=== PATIENT | female | born 1965 | race Caucasian/White ===

== ENCOUNTER 2018-06-09 14:05 | Inpatient (IN) | payer MEDICARE, OTHER ==
[~2018-06-09] VITALS: Ht 144.8 cm; Wt 50.0 kg
[~2018-06-09 14:05] MED LIST: ACEBUTCAFT; ACEBUTCAFT PO; ALPR.5 PO; AMIT75; AMIT75 PO; AMITRIPTYLINE 150 MG; AMYLIPPROE PO; ANAS1 PO; Adipex-P37.5 M1 PO; BISA5EC PO; BUTASPCAF PO; CIPR500 PO; CITA20 PO; CODBUTACEC PO; DULO30 PO; ESOM20; ESOM20 PO; EZET10; EZET10-10; EZET10-20 PO; FAMO40 PO; FLUT110OIA INH; HYDACE5 PO; HYDMOR2 PO; KETO10 PO; LANS30EC PO; LEVSOD50 PO; LORA.5 PO; LOVA20 PO; MAGCIT300 PO; METO10 PO; METO25 PO; NAPR500 PO; NITR100CA PO; OMEPRAZOLE MAGN20 MG PO; ONDA4 PO; ONDA4ODT MM; ONDA8 PO; ONDA8ODT MM; OXYACE5T PO; OXYACE7.5T PO; PENVK500 PO; POTCHL20ER PO; PROC10 PO; PROM25 PO; PROM25S PR; Percocet 7.5-31 EACH PO; RANI150 PO; RXHYDACE PO; RXHYDMOR2 PO; RXOXYACE PO; RXPROM25 PO; RXTRAM50 PO; SENN187 PO; SODPHOSO PR; SULTRISS PO; TOPI50 PO; TRAM50; TRAM50 PO; TRAZ100 PO; [UNRECOGNIZED DRUG - OTHER] PO; [UNRECOGNIZED DRUG - REMARK]; knee brace
[2018-06-09 15:19] LABS: BASOPHILS ABSOLUTE AUTO 0.02 K/mm3 (0.00-0.23); BASOPHILS PERCENT AUTO 0 % (0-2); EOSINOPHILS ABSOLUTE AUTO 0.01 K/mm3 (0.00-0.68); EOSINOPHILS PERCENT AUTO 0 % (0-6); Hematocrit 37.1 % (33.0-51.0); IMMATURE GRAN ABSOLUTE AUTO 0.03 K/mm3 (0.00-0.10); IMMATURE GRAN PERCENT AUTO 1 % (0-1); LYMPHOCYTES ABSOLUTE AUTO 1.14 K/mm3 (0.84-5.20); LYMPHOCYTES PERCENT AUTO 23 % (21-46); MONOCYTES ABSOLUTE AUTO 0.42 K/mm3 (0.16-1.47); MONOCYTES PERCENT AUTO 9 % (4-13); Mean Corpuscular Volume 114 fL (80-100); Mean Platelet Volume 8.8 fL (9.1-12.4); NEUTROPHILS ABSOLUTE AUTO 3.27 K/mm3 (1.96-9.15); NEUTROPHILS PERCENT AUTO 67 % (41-73); Platelet Count 190 K/mm3 (150-400); RDW Coefficient Variation 13.2 % (11.7-14.2); RDW Standard Deviation 56.3 fL (35.1-46.3); Red Blood Cell Count 3.25 M/mm3 (3.80-5.20); White Blood Cell Count 4.89 K/mm3 (4.00-11.30)
[2018-06-09 15:54] LABS: Alanine Aminotransfer (ALT/SGP 35 U/L (12-78); Albumin, Blood 3.7 g/dL (3.4-5.0); Albumin/Globulin Ratio 1.1 (0.8-1.8); Alk Phos 35 U/L (50-136); Anion Gap 14 mmol/L (6-16); Aspartate Aminotrans (AST/SGOT 31 U/L (12-37); Bilirubin, Total 0.4 mg/dL (0.1-1.0); Blood Urea Nitrogen 11 mg/dL (8-24); Bun/Creatinine Ratio 19.4 (12.0-20.0); CO2, Blood 19 mmol/L (21-32); Calcium, Blood 8.1 mg/dL (8.5-10.1); Chloride, Blood 103 mmol/L (98-108); Creatinine, Blood 0.57 mg/dL (0.40-1.00); Globulin, Blood 3.3 g/dL (2.2-4.0); Glomerular Filtration Rate >60 (60-); Glucose, Blood 67 mg/dL (70-99); Potassium, Blood 2.7 mmol/L (3.5-5.5); Sodium, Blood 136 mmol/L (136-145)
[2018-06-09] MEDS ORDERED: Zantac150 MG PO (20:01)
[2018-06-09] MEDS ORDERED: TRAZ150T57 PO (20:01)
[2018-06-09] MEDS ORDERED: EXEM25 PO (20:05)
[2018-06-09] MEDS ORDERED: Lovastatin20 MG PO (20:07)
[2018-06-10 04:32] LABS: Hematocrit 31.1 % (33.0-51.0); Mean Corpuscular HGB Conc 35.4 g/dL (31.5-36.5); Mean Platelet Volume 9.3 fL (9.1-12.4); Platelet Count 148 K/mm3 (150-400); RDW Standard Deviation 52.4 fL (35.1-46.3); Red Blood Cell Count 2.82 M/mm3 (3.80-5.20); White Blood Cell Count 4.05 K/mm3 (4.00-11.30)
[2018-06-10 04:34] LABS: Mean Corpuscular Volume 110 fL (80-100)
[2018-06-10 04:50] LABS: Alanine Aminotransfer (ALT/SGP 32 U/L (12-78); Albumin/Globulin Ratio 1.1 (0.8-1.8); Alk Phos 29 U/L (50-136); Anion Gap 10 mmol/L (6-16); Aspartate Aminotrans (AST/SGOT 30 U/L (12-37); Bilirubin, Total 0.3 mg/dL (0.1-1.0); Blood Urea Nitrogen 5 mg/dL (8-24); Bun/Creatinine Ratio 11.2 (12.0-20.0); CO2, Blood 22 mmol/L (21-32); Calcium, Blood 7.6 mg/dL (8.5-10.1); Chloride, Blood 109 mmol/L (98-108); Creatinine, Blood 0.45 mg/dL (0.40-1.00); Globulin, Blood 2.7 g/dL (2.2-4.0); Glomerular Filtration Rate >60 (60-); Glucose, Blood 192 mg/dL (70-99); Potassium, Blood 2.8 mmol/L (3.5-5.5); Sodium, Blood 141 mmol/L (136-145); Total Protein, Blood 5.7 g/dL (6.4-8.2)
--- NOTE | 2018-06-10 06:20 | NUR ---
SHIFT SUMMARY PT NEW ED ADMIT THIS EVENING. WEAK BUT ABLE TO AMBULATE TO RESTROOM WITH ONLY A SBA. PT REPORTS MID UPPER EPIGASTRIC PAIN THAT RADIATES DOWNWARDS AT TIMES TO HER UMBILICUS. SHE REPORTS THIS PAIN HAS BEEN GOING ON FOR SOME TIME BUT HER PRIMARY CARE AND HER ONCOLOGIST HAVE BEEN UNABLE TO FIGURE OUT WHY. THERE IS NAUSEA INVOLVED WELL AND PT REPORTS SHE IS RARELY ABLE TO HOLD DOWN FOOD AND THAT WITHIN THE LAST 2 MONTHS SHE WAS LOST 20 LBS. SHE ALSO HAS LOST, PER PT, APPROXIMATELY 100 LBS IN THE LAST YEAR. PT'S GLUCOSE CRITICALLY LOW AT 27 DOWN IN EMERGENCY DEPARTMENT, D50 WAS GIVEN. PT HAS IMPROVED WITH LAST TWO CHECKS BEING 140 AND 192. PT ALSO HAS D5 W/ 1/2 NORMAL SALINE RUNNING AT 75 ML/HR. MEDICATED X 1 W/ IV REGLAN AND PT'S NORMAL BEDTIME DOSE OF 7.5 MG PERCOCET. PT APPEARED COMFORTABLE FOLLOWING AND SLEPT THROUGH MUCH OF THE REMAINDER OF THE NIGHT. PT HAD MASTECTOMY YEARS PRIOR AND HAS RESIDUAL NERVE DAMAGE AND PAIN IN LEFT BREAST/ARM WHICH IS NORMALLY WHAT SHE REPORTS SHE TAKES THE PERCOCET FOR. PT RESTING IN BED AT THIS TIME. NO EPISODES OF EMESIS. ALTHOUGH PT ONLY ATTEMPTED TO EAT ONE JELLO THIS EVENING BUT TOLERATED WELL. BLOOD PRESSURE INTERMITTENTLY HYPOTENSIVE. PT ASYMPTOMATIC. OTHERWISE VSS. SISTER AT BEDSIDE THROUGHOUT THE NIGHT.
--- NOTE | 2018-06-10 17:30 | NUR ---
SHIFT SUMMARY PATIENT VERY ANXIOUS TODAY. SHE HAS EXPRESSED CONCERN THAT SHE FEELS HER HEALTHCARE TEAM OUTPATIENT THINKS SHE IS FAKING THE PAIN AND NAUSEA. SHE HAS NOT HELD DOWN MUCH OF HER CLEAR LIQUID DIET, AND IS TENDER TO PALPATION ALONG THE EPIGASTRIC REGION OF HER ABDOMEN. PATIENT IS SBA-INDEPENDENT IN THE ROOM TO THE BATHROOM. SHE FEELS THAT SHE IS WEAK BUT WILL CALL APPROPRIATELY. PATIENT IS VERY TEARFUL TODAY, BUT I HAVE TALKED WITH HER MANY TIMES ABOUT WHAT IS GOING ON AND THE ACUTE SIGNS AND STEPS TO FOLLOW FROM HERE. SHE IS Q4 BLOOD SUGARS AT THIS TIME WITH A WIDE RANGE OF BLOOD SUGAR READINGS.
[2018-06-10 22:42] LABS: Bilirubin, Urine Neg (Neg); Blood, Urine Neg (Neg); Glucose Qualitative, Urine Neg (Neg); Ketones, Urine 1+ (Neg); Leukocyte Esterase, Urine Neg (Neg); Nitrite, Urine Neg (Neg); Protein, Urine Neg (Neg); Urobilinogen, Urine NORM (Normal); pH, Urine 6.5 (5.0-8.0)
[2018-06-10 22:43] LABS: Appearance, Urine Clear (Clear); Color, Urine Yellow (P-Yellow)
[2018-06-11 04:48] LABS: BASOPHILS ABSOLUTE AUTO 0.03 K/mm3 (0.00-0.23); BASOPHILS PERCENT AUTO 1 % (0-2); EOSINOPHILS ABSOLUTE AUTO 0.02 K/mm3 (0.00-0.68); EOSINOPHILS PERCENT AUTO 1 % (0-6); Hematocrit 33.4 % (33.0-51.0); IMMATURE GRAN ABSOLUTE AUTO 0.01 K/mm3 (0.00-0.10); IMMATURE GRAN PERCENT AUTO 0 % (0-1); LYMPHOCYTES ABSOLUTE AUTO 0.95 K/mm3 (0.84-5.20); LYMPHOCYTES PERCENT AUTO 32 % (21-46); MONOCYTES ABSOLUTE AUTO 0.38 K/mm3 (0.16-1.47); MONOCYTES PERCENT AUTO 13 % (4-13); Mean Corpuscular HGB 39.5 pg (26.0-34.0); Mean Corpuscular HGB Conc 35.9 g/dL (31.5-36.5); Mean Corpuscular Volume 110 fL (80-100); NEUTROPHILS ABSOLUTE AUTO 1.55 K/mm3 (1.96-9.15); NEUTROPHILS PERCENT AUTO 53 % (41-73); Platelet Count 141 K/mm3 (150-400); RDW Standard Deviation 52.1 fL (35.1-46.3); Red Blood Cell Count 3.04 M/mm3 (3.80-5.20); White Blood Cell Count 2.94 K/mm3 (4.00-11.30)
[2018-06-11 05:28] LABS: Albumin, Blood 2.9 g/dL (3.4-5.0); Anion Gap 6 mmol/L (6-16); Blood Urea Nitrogen 1 mg/dL (8-24); Bun/Creatinine Ratio 2.5 (12.0-20.0); CO2, Blood 27 mmol/L (21-32); Calcium, Blood 8.2 mg/dL (8.5-10.1); Chloride, Blood 109 mmol/L (98-108); Creatinine, Blood 0.41 mg/dL (0.40-1.00); Glomerular Filtration Rate >60 (60-); Glucose, Blood 129 mg/dL (70-99); Magnesium, Blood 1.9 mg/dL (1.6-2.4); Potassium, Blood 3.4 mmol/L (3.5-5.5); Sodium, Blood 142 mmol/L (136-145)
--- NOTE | 2018-06-11 06:08 | NUR ---
SHIFT SUMMARY NO ACUTE CHANGES THIS EVENING. MINIMAL NAUSEA, HOWEVER PT HAD VERY LITTLE ORAL INTAKE. ONLY EATING A JELLO CUP. PT DID CONTINUE TO REPORT EPIGASTRIC PAIN MAINLY IN MID UPPER REGION BUT RADIATING THROUGHOUT. MEDICATED W/ SCHEDULED PERCOCET. PT APPEARED TO SLEEP WELL THROUGH MUCH OF THE NIGHT. EMOTIONAL AT START OF SHIFT, CONCERNED WITH LACK OF ANSWERS FOR SYMPTOMS AND BEING SENT HOME WITHOUT BEING CAPABLE OF HAVING GOOD ORAL INTAKE. BLOOD PRESSURE ON THE LOW SIDE AT TIMES BUT ONLY WHEN PT WAS DEEPLY SLEEPING. SISTER AT BEDSIDE THROUGHOUT THE NIGHT. SISTER REPORTED THIS EVENING THAT PT IS HIGH FUNCTIONING DEVELOPMENTALLY DELAYED, CAUSING EXTRA CONCERN WITH PT'S ABILITY TO COPE WITH AND ADDRESS CONTINUED SYMPTOMS AT HOME. OTHERWISE, NO REAL ACUTE CHANGES. WILL CONTINUE TO MONITOR AND REPORT TO DAY RN.
[2018-06-11 06:54] LABS: U Amphetamine Screen Not Detected; U Barbituate Screen Not Detected; U Benzodiazapine Screen Not Detected; U Buprenorphine Screen Not Detected; U Cannabinoids Screen Not Detected; U Cocaine Screen Not Detected; U Methadone Screen Not Detected; U Methamphetamine Screen Not Detected; U Opiates Screen Not Detected; U Oxycodone Screen DETECTED; U Phencyclidine Screen Not Detected; U Propoxyphene Screen Not Detected
--- NOTE | 2018-06-11 17:24 | NUR ---
SHIFT SUMMARY NO ACUTE CONCERNS FROM THE PATIENT AT THIS TIME. SHE IS LESS TEARFUL TODAY AND NO CONCERNS FROM THE PATIENT OR FAMILY. HER POTASSIUM IS BACK IN A SAFE RANGE AND THE PATIENT IS WORRIED THAT SHE WILL NOT GET ANSWERS TO HER ABDOMINAL PAIN PROBLEMS.
--- NOTE | 2018-06-12 05:25 | NUR ---
SHIFT SUMMARY PT SLEPT WELL AGAIN THIS EVENING. CONTINUES TO REPORT MID UPPER EPIGASTRIC PAIN THAT RADIATES TO LOWER ABD. PT HAS DIFFICULT TIME EATING ANYTHING WITHOUT FEELING OVERLY FULL AND NAUSEATED, HOWEVER PT WAS ABLE TO EAT SEVERAL JELLOS AND A POPSICLE AND TOLERATED WELL THIS EVENING. MEDICATED W/ SCHEDULED PERCOCET AT BEDTIME. PT DID NOT REQUIRE ANY ANTIEMETICS TONIGHT. FAMILY AND PT CONTINUE TO BE CONCERNED ABOUT BEING DISCHARGED WITHOUT AN ANSWER TO WHY PT HAS BEEN HAVING EPIGASTRIC PAIN WITH INABILITY TO EAT WELL. OTHERWISE THOUGH, UNEVENTFUL NIGHT. BLOOD PRESSURE LOW AT TIMES WITH SYSTOLIC IN THE 90'S BUT IMPROVES ONCE AWAKE. VITAL SIGNS STABLE. PT SLEEPING AT THIS TIME. WILL CONTINUE TO MONITOR AND REPORT TO DAY RN.
[2018-06-12 05:33] LABS: BASOPHILS ABSOLUTE AUTO 0.02 K/mm3 (0.00-0.23); BASOPHILS PERCENT AUTO 1 % (0-2); EOSINOPHILS ABSOLUTE AUTO 0.04 K/mm3 (0.00-0.68); EOSINOPHILS PERCENT AUTO 1 % (0-6); Hematocrit 34.7 % (33.0-51.0); Hemoglobin 12.2 g/dL (11.5-16.0); IMMATURE GRAN ABSOLUTE AUTO 0.01 K/mm3 (0.00-0.10); IMMATURE GRAN PERCENT AUTO 0 % (0-1); LYMPHOCYTES ABSOLUTE AUTO 0.96 K/mm3 (0.84-5.20); LYMPHOCYTES PERCENT AUTO 32 % (21-46); MONOCYTES PERCENT AUTO 13 % (4-13); Mean Corpuscular HGB 39.5 pg (26.0-34.0); Mean Corpuscular HGB Conc 35.2 g/dL (31.5-36.5); Mean Corpuscular Volume 112 fL (80-100); NEUTROPHILS ABSOLUTE AUTO 1.56 K/mm3 (1.96-9.15); NEUTROPHILS PERCENT AUTO 52 % (41-73); Platelet Count 147 K/mm3 (150-400); RDW Coefficient Variation 13.2 % (11.7-14.2); RDW Standard Deviation 54.4 fL (35.1-46.3); Red Blood Cell Count 3.09 M/mm3 (3.80-5.20); White Blood Cell Count 2.99 K/mm3 (4.00-11.30)
[2018-06-12 06:17] LABS: Anion Gap 5 mmol/L (6-16); Blood Urea Nitrogen 1 mg/dL (8-24); Bun/Creatinine Ratio 2.5 (12.0-20.0); CO2, Blood 27 mmol/L (21-32); Calcium, Blood 8.3 mg/dL (8.5-10.1); Chloride, Blood 109 mmol/L (98-108); Glomerular Filtration Rate >60 (60-); Glucose, Blood 99 mg/dL (70-99); Potassium, Blood 3.5 mmol/L (3.5-5.5); Sodium, Blood 141 mmol/L (136-145)
--- NOTE | 2018-06-12 12:12 | NUR ---
NOTIFIED LOPRESSOR HELD THIS A.M. 0300 B.P. WAS 99/68 W/PULSE 72 AND 0730 B.P. WAS 95/66 W/PULSE 79. ALSO ADVISED DOES NOT TAKE TOPAMAX PER RELATIVE. OK TO [facility].
--- NOTE | 2018-06-12 17:39 | NUR ---
ALERT. ORIENTED. MEDICATED FOR PAIN W/SCHEDULED PAIN MEDS W/GOOD RESULTS. ANTINAUSEA MEDS GIVEN WITH DIET ADVANCED TO FULL LIQUID. MIDEPIGASTRIC PAIN HAS BEEN ON GOING FOR YEARS. RELATIVES SEEM TO HELP PATIENT TO REST ROOM WHEN NEEDED. IV PATENT AND RUNNING. TELE ON. WCTM
--- NOTE | 2018-06-12 20:45 | NUR ---
CBG 88, PT GIVEN POPSICLE AND PUDDING FOR HYPOGLYCEMIA PREVENTION D/T CONT'D POOR APPETITE. WILL RECHECK AT PA RX'D.
--- NOTE | 2018-06-12 22:00 | NUR ---
PT AND HER SISTER EXPRESSED CONCERN FOR POTENTIAL D/C IF PLANNED TO OCCUR SOON D/T CONT'D NAUSEA, POOR APPETITE, SWALLOW ISSUES AND EXTENSIVE WT.LOSS OVER PAST 6 MONTHS-1 YEAR. THEY FEEL SHE "CAN'T GO HOME LIKE THIS" AND THAT "IT WOULD BE UNSAFE TO HER HEALTH". THEY ARE HOPING FOR "MORE ANSWERS BEFORE BEING SENT HOME". WE DISCUSSED MD'S PROGRESS NOTES AND APPARENT PLAN. I DIDN'T SEE ANY INDICATION THAT PT WOULD GO HOME IN AM WHICH WAS THE IMPRESSION THEY'D PREVIOUSLY RECIEVED. WILL ENSURE DAY STAFF ARE AWARE.
--- NOTE | 2018-06-13 00:37 | NUR ---
CBG IMPROVED TO 119. WILL RECHECK Q4H PER RX.
--- NOTE | 2018-06-13 06:23 | NUR ---
SUMMARY: A/OX4, SPECIFIES NEEDS AND FAMILY STAYS W/PT, ASSISTING W/CARE PRN. SHE'S SBA TO BSC AND UP AD KAREN. PT CONT'S TO LACK APPETITE BUT SEEMS TO BE TOLERATING FULL LIQ'S. X1 ZOFRAN PRN RECIEVED PROPHYLACTICALLY TO EASE SCHEDULED PAIN MED EFFECTS ON STOMACH. FAMILY IS CONCERNED RE:POSSIBILITY OF D/C W/PT STILL NAUSEOUS/NOT EATING GIVEN SIGNIFICANT WT.LOSS AND LACKING DEFINITIVE DIAGNOSIS/PROGNOSIS. Q4H CHEMBG'S STABLE, LOWEST WAS 88 W/SNACK PROVIDED AND IMPROVED. SHE REMAINS ON D5 1/2NS W/40KCL AND CLEAR ENSURES WERE ENCOURAGED RX'D. SHE CONT'S TO HAVE CHRONIC L.ARM PAIN POST MASTECTOMY AND MIDABDO PAIN BUT SCHEDULED PAIN MEDS PROVIDED TOLERABLE RELIEF. NO ACUTE CHANGES, VSS/AFEBRILE. WCTM AND REPORT TO DAY RN.
--- NOTE | 2018-06-13 13:49 | NUR ---
Initial Visit: Palliative Care Consult for AD/POLST. Pt is A&Ox4 and jhonny pain at this time. Pt reports moderate anxiety due to not knowing why she is experiencing pain and nausea after eating. Pt's sister Mallory and father Brayan present during visit. Engaged in therapeutic conversation regarding AD/POLST. Mallory reports Pt has developmental delay but is appropriate to have discussions. Discussed Current POLST of file. Pt and family report wishes have changed. Pt reports that she still does not want CPR and only limited treatment. She would like to have tube feeding consideration. Pt prefers Mallory to complete new POLST and sign. Educated Pt and family on each life sustaining treatment including risk factors. Pt's level of understanding appears to be appropriate for conversation. Pt and family report no other concerns. Spoke with Dr Santacruz and she signs new POLST. She requests for palliative care to follow for her chronic pain issues. Plan: Will follow up for pain management.
--- NOTE | 2018-06-13 16:07 | NUR ---
Placed code status order for DNR per V/O from Dr Santacruz.
--- NOTE | 2018-06-13 17:35 | NUR ---
ALERT. ORIENTED. PLEASANT. AMBULATORY, STEADY GAIT IN ROOM. BRUISING UPPER EXT SCATTERED. 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 MEDICATED FOR NAUSEA W/GOOD RESULTS. PATIENT HAS NOT VOMITED. AWARE TO TAKE SMALL BITES OF HER FOOD. ABLE TO MAKE HER NEEDS KNOWN. BED IN LOW POSITION. CALL LIGHT WITHIN REACH. RELATIVES PRETTY MUCH STAY 24/7 AND ARE VERY ATTENTIVE. WCTM.
--- NOTE | 2018-06-14 03:39 | NUR ---
SHIFT SUMMARY PATIENT HAD NO ACUTE CHANGES OBSERVED THIS SHIFT. AXOX 4 AND INDEPENDENT IN THE ROOM. TAKES MEDICATION WHOLE WITH WATER. CBG Q4 WITH FIRST TWO 96 AND 94. PATIENT REPORTS L SHOULDER PAIN AND SCHEDULE PERCOCET GIVEN PER EMAR. PIV REMAINS INTACT. PLASTIC PARTS FABRICATOR REPORTS NSR 88. VSS/AFEBRILE. DENIES SOB AND N/V. FAMILY AND PRESENT WITH ONE FAMILY MEMBER STAYING OVER WITH PATIENT. CALL LIGHT IN REACH. BED IN LOWEST POSITION. WILL CONTINUE TO MONITOR UNTIL DAY SHIFT NURSE ASSUMES CARE.
--- NOTE | 2018-06-14 04:16 | NUR ---
GI CONSULT ANSWERING SERVICE REPORTS TO CALL BACK AFTER 08:00 TODAY FOR BEN SOLER REQUEST.
--- NOTE | 2018-06-14 04:29 | NUR ---
CBG Q4 THIS SHIFT: 94,96, AND 89. PATIENT HAVING JUICE AND FOOD AFTER CBG 89. CALL LIGHT IN REACH.
--- NOTE | 2018-06-14 08:11 | NUR ---
CODE STATUS: DNR VERIFIED WITH LAURA ANGELES RN. PURPLE BAND PLACED ON LEFT WRIST. PT AGREES WITH THIS.
--- NOTE | 2018-06-14 14:57 | NUR ---
Pt visit this afternoon. Pt reports her pain and nausea is managed with current regimen. Family reports GI consult will take place later this evening or tomorrow. Pt reports no concerns at this time. Palliative Care will remain available.
--- NOTE | 2018-06-14 18:08 | NUR ---
SHIFT SUMMARY: DIET ADVANCED TODAY. PT ABLE TO EAT A TUNA FISH SANDWICH FOR LUNCH AND TOLERATED WITHOUT N/V. REGLAN, PROTONIX, AND ZOFRAN GIVEN PRIOR TO EACH MEAL. PERCOCET GIVEN SCHEDULED FOR CHRONIC LEFT SHOULDER PAIN. PT HAS BEEN AMBULATING IN HALLS WITHOUT DIFFICULTY. GI CONSULT CALLED TO BOTH DR. SOLER AND DR. BALLESTEROS'S OFFICES TODAY; DR. BALLESTEROS'S OFFICE ASSURED THIS RN THAT ONE OF THE TWO PROVIDERS WOULD BE IN TO SEE THE PT TODAY. PT HOPEFUL TO GO TO [facility] IF NO ANSWERS FOUND HERE. NO OTHER CHANGES THIS SHIFT. VITAL SIGNS STABLE. WILL CONTINUE TO MONITOR AND REPORT TO ONCOMING RN.
[2018-06-15 05:02] LABS: BASOPHILS ABSOLUTE AUTO 0.03 K/mm3 (0.00-0.23); BASOPHILS PERCENT AUTO 1 % (0-2); EOSINOPHILS PERCENT AUTO 3 % (0-6); Hematocrit 33.7 % (33.0-51.0); Hemoglobin 11.5 g/dL (11.5-16.0); IMMATURE GRAN ABSOLUTE AUTO 0.03 K/mm3 (0.00-0.10); IMMATURE GRAN PERCENT AUTO 1 % (0-1); LYMPHOCYTES ABSOLUTE AUTO 1.24 K/mm3 (0.84-5.20); LYMPHOCYTES PERCENT AUTO 32 % (21-46); MONOCYTES ABSOLUTE AUTO 0.49 K/mm3 (0.16-1.47); MONOCYTES PERCENT AUTO 13 % (4-13); Mean Corpuscular HGB 38.9 pg (26.0-34.0); Mean Corpuscular HGB Conc 34.1 g/dL (31.5-36.5); Mean Corpuscular Volume 114 fL (80-100); Mean Platelet Volume 9.4 fL (9.1-12.4); NEUTROPHILS ABSOLUTE AUTO 1.96 K/mm3 (1.96-9.15); NEUTROPHILS PERCENT AUTO 51 % (41-73); Platelet Count 133 K/mm3 (150-400); RDW Coefficient Variation 12.2 % (11.7-14.2); Red Blood Cell Count 2.96 M/mm3 (3.80-5.20); White Blood Cell Count 3.85 K/mm3 (4.00-11.30)
[2018-06-15 05:24] LABS: Alanine Aminotransfer (ALT/SGP 36 U/L (12-78); Albumin, Blood 2.9 g/dL (3.4-5.0); Alk Phos 36 U/L (50-136); Anion Gap 7 mmol/L (6-16); Aspartate Aminotrans (AST/SGOT 21 U/L (12-37); Bilirubin, Total 0.3 mg/dL (0.1-1.0); Blood Urea Nitrogen 9 mg/dL (8-24); Bun/Creatinine Ratio 17.3 (12.0-20.0); CO2, Blood 31 mmol/L (21-32); Chloride, Blood 101 mmol/L (98-108); Creatinine, Blood 0.52 mg/dL (0.40-1.00); Globulin, Blood 2.9 g/dL (2.2-4.0); Glomerular Filtration Rate >60 (60-); Glucose, Blood 97 mg/dL (70-99); Potassium, Blood 3.4 mmol/L (3.5-5.5); Sodium, Blood 139 mmol/L (136-145); Total Protein, Blood 5.8 g/dL (6.4-8.2)
--- NOTE | 2018-06-15 06:03 | NUR ---
SHIFT SUMMARY PT HAD A GOOD EVENING, UP WALKING IN HALLS WITH SISTER. STATES THIS IS THE BEST SHE HAS FELT IN OVER A YEAR. SLEPT WELL T/O NIGHT. NO ACUTE EVENTS OR CHANGES NOTED, WILL CONTINUE TO MONITOR.
--- NOTE | 2018-06-15 15:17 | NUR ---
SUMMARY PT IS A/O X4, HX DEVELOPMENTALLY DELAYED, SOMEWHAT CHILDLIKE HOWEVER ANSWERS APPROP. SHE STATE CONTINUING L SHOULDER PAIN R/T HX MASTECTOMY, SCHEDULED PRERCOCET EFFECTIVE FOR PAIN RELIEF/CONTROL. SHE STATE NO NAUSEA TODAY, TOLERATING DIET. ENCOURAGE HER TO TAKE FOOD IN SM PORTIONS. DR ESCALERATRATE REQUEST GI CONSULT RECALLED R/T DELAYED GASTRIC EMPTYING, DR HARO OFFICE NOTIFIED. PT HAS BEEN UP AMBULATING IN [place] W FAMILY, STEADY GAIT. VSS.
--- NOTE | 2018-06-16 05:47 | NUR ---
SHIFT SUMMARY PT UP IN HALLS BEFORE BED WALKING WITH SISTER. SLEPT WELL DURING THE NIGHT. OFFERS NO C/O'S. B/P A LITTLE LOW THIS AM, WILL MONITOR.
[2018-06-16] MEDS ORDERED: METO5A PO ×2 (11:44→11:48)
[2018-06-16] MEDS ORDERED: LIDO700A20 TOP ×2 (11:46→11:49)
[2018-06-16] MEDS ORDERED: Micro-K10 MEQ (12:18)
--- NOTE | 2018-06-16 13:58 | NUR ---
DISCHARGE PT STATE NO NAUSEA OR ABD PAIN. TOLERATING DIET IN SM PORTIONS DIRECTED BY . SHE HAS BEEN UP AMBULATING IN LEE. STATE HOPEFUL FOR D/C HOME TODAY. SISTER WITH PT. ISTRATE IN TO SEE HER, PROVIDE D/C HOME ORDERS. SCRIPTS FAXED TO [facility]/REQUEST. D/C INSTRUCT PROVIDED W EMPHASIS ON F/U WITH PCP & GI. NEW MEDS REVIEWED. PT & FAMILY PLEASANT/APPRECIATIVE. SHE CHOOSE TO AMBULATE FROM HOSP ACCOMPANIED BY FAMILY, DECLINE W/C ESCORT.
== END 2018-06-16 13:44 | disposition home or self-care (01) | DRG 640 ==
LOC: ER 14:05 → MEDS 14:06 → ER 23:09 → MEDS 23:20 → ENPENDDIS 06-16 11:56 → MEDS 06-16 13:44
PROVIDERS: Family Medicine; Internal Medicine; Nurse Practitioner Acute Care; Physician Assistant; ADMIT Internal Medicine
DX: E87.6 Hypokalemia (principal); E43 Unspecified severe protein-calorie malnutrition; E03.9 Hypothyroidism, unspecified; K30 Functional dyspepsia; E16.2 Hypoglycemia, unspecified; E78.00 Pure hypercholesterolemia, unspecified; E86.0 Dehydration; E87.2 Acidosis; Z85.3 Personal history of malignant neoplasm of breast; K21.9 Gastro-esophageal reflux disease without esophagitis; F32.9 Major depressive disorder, single episode, unspecified; I10 Essential (primary) hypertension; I95.9 Hypotension, unspecified; K46.9 Unspecified abdominal hernia without obstruction or gangrene; Z68.23 Body mass index [BMI] 23.0-23.9, adult; E83.39 Other disorders of phosphorus metabolism; D70.9 Neutropenia, unspecified; E53.8 Deficiency of other specified B group vitamins; G89.29 Other chronic pain; M25.512 Pain in left shoulder
CPT/HCPCS: 36415; 70450; 74177; 80048; 80053; 80069; 81003; 82607; 82746; 82947; 83036; 83690; 83735; 84100; 84132; 84443; 84681; 85025; 85027; 96361-59; 96374-59; 96375-59; 99285-25; A9270-GY; J1650; J2405; J2765; J3010; J3480; J7030; J7040; J7060; Q9967

== ENCOUNTER → 2018-07-07 | Outpatient (CLI) | payer MEDICARE, OTHER ==
[~2018-07-07] MED LIST changes: +EXEM25 PO; +LIDO700A20 TOP; +Lovastatin20 MG PO; +METO5A PO; +Micro-K10 MEQ; +TRAZ150T57 PO; +Zantac150 MG PO
== END | disposition home or self-care (01) ==
LOC: LAB SHORT 17:07 → LAB 17:07 → LAB FUT 07-05 11:20
DX: R10.13 Epigastric pain (principal); R11.2 Nausea with vomiting, unspecified; R63.4 Abnormal weight loss
CPT/HCPCS: 82656

== ENCOUNTER 2019-11-17 13:56 | Inpatient (IN) | payer MEDICARE, OTHER ==
[~2019-11-17] VITALS: Ht 144.8 cm; Wt 57.6 kg
[~2019-11-17 13:56] MED LIST changes: -EXEM25 PO; -LEVSOD50 PO; -Lovastatin20 MG PO; -METO25 PO; -Micro-K10 MEQ; -OMEPRAZOLE MAGN20 MG PO; -Percocet 7.5-31 EACH PO; -TOPI50 PO; -TRAZ150T57 PO
[2019-11-17 14:55] LABS: Bilirubin, Urine Neg (Neg); Blood, Urine Neg (Neg); Glucose Qualitative, Urine Neg (Neg); Ketones, Urine Neg (Neg); Leukocyte Esterase, Urine 1+ (Neg); Nitrite, Urine Neg (Neg); Protein, Urine 1+ (Neg); Source, Urine Clean Catch; Urobilinogen, Urine NORM (Normal)
[2019-11-17 14:56] LABS: BASOPHILS ABSOLUTE AUTO 0.04 K/mm3 (0.00-0.23); BASOPHILS PERCENT AUTO 0 % (0-2); EOSINOPHILS ABSOLUTE AUTO 0.03 K/mm3 (0.00-0.68); EOSINOPHILS PERCENT AUTO 0 % (0-6); Hematocrit 38.1 % (33.0-51.0); Hemoglobin 12.7 g/dL (11.5-16.0); IMMATURE GRAN ABSOLUTE AUTO 0.08 K/mm3 (0.00-0.10); IMMATURE GRAN PERCENT AUTO 1 % (0-1); LYMPHOCYTES ABSOLUTE AUTO 1.09 K/mm3 (0.84-5.20); LYMPHOCYTES PERCENT AUTO 10 % (21-46); MONOCYTES ABSOLUTE AUTO 0.62 K/mm3 (0.16-1.47); MONOCYTES PERCENT AUTO 6 % (4-13); Mean Corpuscular HGB 36.4 pg (26.0-34.0); Mean Corpuscular HGB Conc 33.3 g/dL (31.5-36.5); Mean Corpuscular Volume 109 fL (80-100); Mean Platelet Volume 8.9 fL (9.1-12.4); NEUTROPHILS PERCENT AUTO 82 % (41-73); Platelet Count 232 K/mm3 (150-400); RDW Coefficient Variation 13.8 % (11.7-14.2); RDW Standard Deviation 55.8 fL (35.1-46.3); Red Blood Cell Count 3.49 M/mm3 (3.80-5.20); White Blood Cell Count 10.56 K/mm3 (4.00-11.30)
[2019-11-17 15:01] LABS: Appearance, Urine Clear (Clear); Color, Urine Yellow (P-Yellow)
[2019-11-17 15:03] LABS: Bacteria Rare /hpf; Mucus Light (0-Heavy); Red Blood Cells, Urine Not Seen /hpf (0-2); Squamous Epithelial Cells Rare /hpf (Few); White Blood Cells, Urine 0-2 /hpf (0-5)
[2019-11-17 15:11] LABS: Alanine Aminotransfer (ALT/SGP 34 U/L (12-78); Albumin, Blood 4.3 g/dL (3.4-5.0); Albumin/Globulin Ratio 1.1 (0.8-1.8); Alk Phos 59 U/L (50-136); Anion Gap 5 mmol/L (6-16); Aspartate Aminotrans (AST/SGOT 32 U/L (12-37); Bilirubin, Total 0.4 mg/dL (0.1-1.0); Blood Urea Nitrogen 6 mg/dL (8-24); CO2, Blood 25 mmol/L (21-32); Calcium, Blood 9.2 mg/dL (8.5-10.1); Chloride, Blood 104 mmol/L (98-108); Globulin, Blood 3.8 g/dL (2.2-4.0); Glomerular Filtration Rate >60 (60-); Glucose, Blood 84 mg/dL (70-99); Potassium, Blood 4.1 mmol/L (3.5-5.5); Sodium, Blood 134 mmol/L (136-145); Total Protein, Blood 8.1 g/dL (6.4-8.2)
[2019-11-17] MEDS ORDERED: Percocet 7.5-31 EACH PO (16:26)
[2019-11-17] MEDS ORDERED: METO5A PO (16:28)
[2019-11-17] MEDS ORDERED: EXEM25 PO (16:28)
[2019-11-17] MEDS ORDERED: LEVSOD25 PO (16:29)
[2019-11-17] MEDS ORDERED: FLUT.05NI (16:29)
[2019-11-17] MEDS ORDERED: NORTRIPTYLINE H10 M1 PO (16:30)
[2019-11-17] MEDS ORDERED: Lovastatin20 MG PO (16:30)
[2019-11-17] MEDS ORDERED: Micro-K10 MEQ PO (16:31)
[2019-11-17] MEDS ORDERED: OMEPRAZOLE MAGN20 MG PO (16:31)
[2019-11-17] MEDS ORDERED: METO25 PO (16:31)
[2019-11-17] MEDS ORDERED: TRAZ150T57 PO (16:33)
[2019-11-17] MEDS ORDERED: TOPI50 PO (16:33)
--- NOTE | 2019-11-17 19:26 | NUR ---
SHIFT SUMMARY: ASSUMED CARE OF PATIENT UPON HER ARRIVAL FROM ED AT 1740. A&O X 4, PLEASANT. C/O ABD PAIN AND NAUSEA; MEDICATED PER EMAR. VERBALIZED UNDERSTANDING OF NPO STATUS. LBM THIS MORNING. BREATHING EASILY ON ROOM AIR. AMBULATING INDEPENDENTLY, GAIT STEADY. GEN SURG CONSULT PENDING.
--- NOTE | 2019-11-18 00:17 | NUR ---
PER ACC WE ARE UNABLE TO DO STAT MRI.DR MURPHY SCHEDULED TO FINISH AT 2400. PTS ARRIVED TO ROOM AFTER SPEAKING WITH DR MURPHY PER HER CALL TO . I HAVE NOT BEEN ABLE TO LOCATE DR MURPHY TO SPEAK WITH . I CALLED OUT TO DR MAYER AND AM WAITING FOR RETURN CALL.
[2019-11-18 05:14] LABS: BASOPHILS ABSOLUTE AUTO 0.03 K/mm3 (0.00-0.23); BASOPHILS PERCENT AUTO 0 % (0-2); EOSINOPHILS PERCENT AUTO 0 % (0-6); Hematocrit 35.5 % (33.0-51.0); Hemoglobin 11.9 g/dL (11.5-16.0); IMMATURE GRAN ABSOLUTE AUTO 0.05 K/mm3 (0.00-0.10); IMMATURE GRAN PERCENT AUTO 1 % (0-1); LYMPHOCYTES ABSOLUTE AUTO 0.72 K/mm3 (0.84-5.20); LYMPHOCYTES PERCENT AUTO 7 % (21-46); MONOCYTES ABSOLUTE AUTO 0.58 K/mm3 (0.16-1.47); MONOCYTES PERCENT AUTO 5 % (4-13); Mean Corpuscular HGB 35.8 pg (26.0-34.0); Mean Corpuscular HGB Conc 33.5 g/dL (31.5-36.5); Mean Corpuscular Volume 107 fL (80-100); Mean Platelet Volume 8.7 fL (9.1-12.4); NEUTROPHILS ABSOLUTE AUTO 9.34 K/mm3 (1.96-9.15); NEUTROPHILS PERCENT AUTO 87 % (41-73); Platelet Count 233 K/mm3 (150-400); RDW Coefficient Variation 13.2 % (11.7-14.2); RDW Standard Deviation 52.7 fL (35.1-46.3); Red Blood Cell Count 3.32 M/mm3 (3.80-5.20); White Blood Cell Count 10.72 K/mm3 (4.00-11.30)
[2019-11-18 05:48] LABS: Alanine Aminotransfer (ALT/SGP 32 U/L (12-78); Albumin, Blood 3.4 g/dL (3.4-5.0); Alk Phos 39 U/L (50-136); Anion Gap 8 mmol/L (6-16); Aspartate Aminotrans (AST/SGOT 22 U/L (12-37); Bilirubin, Total 0.5 mg/dL (0.1-1.0); Blood Urea Nitrogen 3 mg/dL (8-24); Bun/Creatinine Ratio 9.1 (12.0-20.0); CO2, Blood 24 mmol/L (21-32); Calcium, Blood 8.7 mg/dL (8.5-10.1); Chloride, Blood 104 mmol/L (98-108); Creatinine, Blood 0.33 mg/dL (0.40-1.00); Globulin, Blood 3.5 g/dL (2.2-4.0); Glomerular Filtration Rate >60 (60-); Glucose, Blood 117 mg/dL (70-99); Potassium, Blood 3.3 mmol/L (3.5-5.5); Sodium, Blood 136 mmol/L (136-145); Total Protein, Blood 6.9 g/dL (6.4-8.2)
--- NOTE | 2019-11-18 07:57 | NUR ---
SUMMARY PT HAS KNEE HIGH TEDS PLACED AND NON SLIP SOCKS.DURING SHIFT CHANGE, PT AND SISTER ASKING FOR PTS ROUTINE MEDS TO BE ORDERED. PT STATES DID NOT SLEEP WELL.DAY RN AWARE AND AGRESS TO FOLLOW UP.
--- NOTE | 2019-11-18 19:46 | NUR ---
SHIFT SUMMARY: NO ACUTE EVENTS THIS SHIFT. PAIN UNDER BETTER CONTROL WITH INCREASE IN DILAUDID FROM 0.5 MG TO 1 MG IV. HAVING INTERMITTENT NAUSEA WELL MANAGED BY MEDICATIONS. COMPLIANT WITH NPO, USING MOUTH SWABS. SBA TO BR. NO OTHER COMPLAINTS.
[2019-11-19 05:06] LABS: BASOPHILS ABSOLUTE AUTO 0.02 K/mm3 (0.00-0.23); BASOPHILS PERCENT AUTO 0 % (0-2); EOSINOPHILS ABSOLUTE AUTO 0.05 K/mm3 (0.00-0.68); EOSINOPHILS PERCENT AUTO 1 % (0-6); Hematocrit 32.8 % (33.0-51.0); Hemoglobin 11.1 g/dL (11.5-16.0); IMMATURE GRAN ABSOLUTE AUTO 0.08 K/mm3 (0.00-0.10); IMMATURE GRAN PERCENT AUTO 1 % (0-1); LYMPHOCYTES ABSOLUTE AUTO 0.69 K/mm3 (0.84-5.20); LYMPHOCYTES PERCENT AUTO 8 % (21-46); MONOCYTES PERCENT AUTO 8 % (4-13); Mean Corpuscular HGB 36.5 pg (26.0-34.0); Mean Corpuscular HGB Conc 33.8 g/dL (31.5-36.5); Mean Corpuscular Volume 108 fL (80-100); Mean Platelet Volume 8.5 fL (9.1-12.4); NEUTROPHILS PERCENT AUTO 83 % (41-73); Platelet Count 233 K/mm3 (150-400); RDW Coefficient Variation 13.3 % (11.7-14.2); RDW Standard Deviation 53.5 fL (35.1-46.3); Red Blood Cell Count 3.04 M/mm3 (3.80-5.20); White Blood Cell Count 8.94 K/mm3 (4.00-11.30)
[2019-11-19 05:31] LABS: Alanine Aminotransfer (ALT/SGP 31 U/L (12-78); Albumin/Globulin Ratio 0.8 (0.8-1.8); Alk Phos 47 U/L (50-136); Anion Gap 5 mmol/L (6-16); Aspartate Aminotrans (AST/SGOT 30 U/L (12-37); Bilirubin, Total 0.5 mg/dL (0.1-1.0); Blood Urea Nitrogen 4 mg/dL (8-24); Bun/Creatinine Ratio 12.7 (12.0-20.0); CO2, Blood 30 mmol/L (21-32); Calcium, Blood 8.7 mg/dL (8.5-10.1); Chloride, Blood 103 mmol/L (98-108); Creatinine, Blood 0.32 mg/dL (0.40-1.00); Globulin, Blood 3.9 g/dL (2.2-4.0); Glomerular Filtration Rate >60 (60-); Glucose, Blood 94 mg/dL (70-99); Potassium, Blood 2.9 mmol/L (3.5-5.5); Sodium, Blood 138 mmol/L (136-145); Total Protein, Blood 6.9 g/dL (6.4-8.2)
--- NOTE | 2019-11-19 06:39 | NUR ---
SHIFT SUMMARY AOX4. VSS. REPORTS 6-09/23 RUQ/RLQ ABD PAIN, MEDICATED 4X c 1MG DILAUDID, STATES RELIEF. PT ALSO REPORTING SHE'S HAD A EUBANKS FOR THE PAST DAY. REPORTS CONSTANT NAUSEA. MEDICATED 1X c REGLAN & 2X c ZOFRAN. NO EMESIS NOTED. CURRENTLY NPO. DENIES BM. NS @100ML/HR. CALL LIGHT IN REACH.
--- NOTE | 2019-11-19 10:26 | NUR ---
PER DR.SAIGAL HARRELL YO ORDER TYLENOL 650 MG PA Q 6 HRS
[2019-11-19 12:45] LABS: Triglycerides 85 mg/dL (30-160)
--- NOTE | 2019-11-19 17:14 | NUR ---
ALERT. ORIENTED. MEDICATED MULTIPLE TIMES FOR PAIN W/PAIN BEING TOLERABLE AFTERWARDS. AMBULATORY W/STEADY GAIT TO BATHROOM W/SISTER ASSISTING. IV INFUSING. ON R.A. W/UNLABORED RESPIRATIONS. PATIENT AWARE NPO DUE TO POSSIBLE ILEUS. WCTM
[2019-11-20 05:42] LABS: BASOPHILS ABSOLUTE AUTO 0.02 K/mm3 (0.00-0.23); BASOPHILS PERCENT AUTO 0 % (0-2); EOSINOPHILS ABSOLUTE AUTO 0.12 K/mm3 (0.00-0.68); EOSINOPHILS PERCENT AUTO 2 % (0-6); Hematocrit 36.6 % (33.0-51.0); Hemoglobin 12.1 g/dL (11.5-16.0); IMMATURE GRAN ABSOLUTE AUTO 0.04 K/mm3 (0.00-0.10); IMMATURE GRAN PERCENT AUTO 1 % (0-1); LYMPHOCYTES ABSOLUTE AUTO 0.77 K/mm3 (0.84-5.20); LYMPHOCYTES PERCENT AUTO 9 % (21-46); MONOCYTES ABSOLUTE AUTO 0.78 K/mm3 (0.16-1.47); MONOCYTES PERCENT AUTO 10 % (4-13); Mean Corpuscular HGB 35.7 pg (26.0-34.0); Mean Corpuscular HGB Conc 33.1 g/dL (31.5-36.5); Mean Corpuscular Volume 108 fL (80-100); Mean Platelet Volume 8.9 fL (9.1-12.4); NEUTROPHILS ABSOLUTE AUTO 6.52 K/mm3 (1.96-9.15); NEUTROPHILS PERCENT AUTO 79 % (41-73); Platelet Count 252 K/mm3 (150-400); RDW Coefficient Variation 12.7 % (11.7-14.2); RDW Standard Deviation 51.1 fL (35.1-46.3); Red Blood Cell Count 3.39 M/mm3 (3.80-5.20); White Blood Cell Count 8.25 K/mm3 (4.00-11.30)
[2019-11-20 06:02] LABS: Anion Gap 9 mmol/L (6-16); Blood Urea Nitrogen 3 mg/dL (8-24); Bun/Creatinine Ratio 9.4 (12.0-20.0); CO2, Blood 28 mmol/L (21-32); Calcium, Blood 9.6 mg/dL (8.5-10.1); Chloride, Blood 103 mmol/L (98-108); Creatinine, Blood 0.32 mg/dL (0.40-1.00); Glomerular Filtration Rate >60 (60-); Glucose, Blood 84 mg/dL (70-99); Potassium, Blood 3.2 mmol/L (3.5-5.5); Sodium, Blood 140 mmol/L (136-145)
--- NOTE | 2019-11-20 07:05 | NUR ---
SHIFT SUMMARY AOX4. VSS. REPORTS NAUSEA, NO EMESIS-MEDICATED 1X c REGLAN & 1X c ZOFRAN. REPORTS PASSING GAS, NO BM THIS SHIFT. REPORTS -07/24 SHARP EUBANKS & ABD PAIN, STATES PAIN LEVEL IS "BETTER" THEN BEFORE, MEDICATED 2X c 1MG DILAUDID & 1X c TYLENOL SUPPOSITORY-STATES RELIEF. REPORTS SHE WOULD LIKE TO TRY "LIQUIDS" TODAY-INFORMED ONCOMING NURSE. RECIEVED IV K PER ORDERS. CALL LIGHT IN REACH.
--- NOTE | 2019-11-20 08:13 | NUR ---
ADVISED ; LLQ AND RLQ BOWEL TONES HYPOACTIVE AND C/A PAIN AT THAT AREA. NO B.M. SINCE ONE DAY BEFORE ADMIT. POTASSIUM 2.7 RO 3.2 TODAY AND STILL GETTING IV POTASSIUM GOING IN SLOW. STILL GETTING PAIN MEDS PRETTY MUCH Q 2 HOURS. TO SEE
--- NOTE | 2019-11-20 18:09 | NUR ---
ALERT. ORIENTED. VERY EMOTIONAL W/RELATIVE. AWARE IV MEDS FREQUENCY HAS BEEN CHANGED AND WILL ASK FOR MED AT APPROPRIATE TIME. HAS BEEN TAKING SMALL SIPS OF FLUID, SEEMS TO TOLERATE JELLO OK. IS PASSING GAS AND STS FEELS BETTER WHEN SHE DOES.IV PATENT.AMBULATORY W/STEADY GAIT IN ROOM. DEVELOPMENTALLY DELAYED. UNLABORED RESPIRATIONS. WCTM.
[2019-11-21 05:20] LABS: Alanine Aminotransfer (ALT/SGP 25 U/L (12-78); Albumin/Globulin Ratio 0.7 (0.8-1.8); Alk Phos 53 U/L (50-136); Anion Gap 7 mmol/L (6-16); Aspartate Aminotrans (AST/SGOT 25 U/L (12-37); Bilirubin, Total 0.4 mg/dL (0.1-1.0); Blood Urea Nitrogen 3 mg/dL (8-24); Bun/Creatinine Ratio 8.4 (12.0-20.0); CO2, Blood 29 mmol/L (21-32); Calcium, Blood 9.6 mg/dL (8.5-10.1); Chloride, Blood 103 mmol/L (98-108); Creatinine, Blood 0.36 mg/dL (0.40-1.00); Globulin, Blood 4.6 g/dL (2.2-4.0); Glomerular Filtration Rate >60 (60-); Glucose, Blood 128 mg/dL (70-99); Potassium, Blood 3.1 mmol/L (3.5-5.5); Sodium, Blood 139 mmol/L (136-145); Total Protein, Blood 7.6 g/dL (6.4-8.2)
--- NOTE | 2019-11-21 07:14 | NUR ---
SHIFT SUMMARY PT IS A 54 Y/O FEMALE, ADMITTED FOR PANCREATITIS. SHE IS A&O X 4, INDEPENDENT TO THE BATHROOM. SHE IS STILL C/O RUQ & LUQ ABD PAIN AT A 3-05/24, AND WAS MEDICATED WITH SCHEDULED TYLENOL AND TWICE WITH PRN OXYCODONE. SHE WAS ALSO MEDICATED ONCE FOR NAUSEA WITH PRN ZOFRAN. NO C/O SOB. VITAL SIGNS STABLE. NO ACUTE CHANGES IN PT CONDITION NOTED DURING THE NIGHT. WILL CONTINUE TO MONITOR AND TREAT PER EMAR UNTIL HAND OFF TO DAY SHIFT RN.
[2019-11-21] MEDS ORDERED: SENN187 PO (14:23)
[2019-11-21] MEDS ORDERED: MIRALAX17 GM PO (14:23)
--- NOTE | 2019-11-21 14:42 | NUR ---
DISCHARGE NOTE PATIENT ALERT AND ORIENTED THIS SHIFT. PATIENT'S SISTER IN THE ROOM MOST OF THIS SHIFT. PATIENT INDEPENDENT IN THE ROOM. PATIENT STATES PAIN AT A 1-2 LEVEL WITH MEDICATION COVERAGE THIS SHIFT. PATIENT HAD 1 INSTANCE OF NAUSEA THIS AM. PATIENT STATES SHE TAKES NAUSEA MEDICATION REGULARLY AT HOME. PATIENT WITHOUT NAUSEA OR INCREASED PAIN AFTER LUNCH. PATIENT DRESSED INDEPENDENTLY FOR DISCHARGE. IV REMOVED PRIOR TO DISCHARGE. PATIENT TO VEHICLE VIA WHEELCHAIR.
== END 2019-11-21 14:33 | disposition home or self-care (01) | DRG 439 ==
LOC: ER 13:56 → MEDS 17:04 → ENPENDDIS 11-21 14:11 → MEDS 11-21 14:33
PROVIDERS: Emergency Medicine; Family Medicine; Hospitalist; ADMIT Hospitalist
DX: K85.90 Acute pancreatitis without necrosis or infection, unspecified (principal); E87.1 Hypo-osmolality and hyponatremia; K56.609 Unspecified intestinal obstruction, unspecified as to partial versus complete obstruction; K56.7 Ileus, unspecified; E03.9 Hypothyroidism, unspecified; E78.5 Hyperlipidemia, unspecified; E87.6 Hypokalemia; G43.709 Chronic migraine without aura, not intractable, without status migrainosus; I10 Essential (primary) hypertension; K21.9 Gastro-esophageal reflux disease without esophagitis; M81.0 Age-related osteoporosis without current pathological fracture; Z85.3 Personal history of malignant neoplasm of breast; K86.1 Other chronic pancreatitis
CPT/HCPCS: 36415; 74018; 74177; 80048; 80053; 81001; 83605; 83690; 84478; 84484; 85025; 87077; 87086; 87147; 87186; 93005; 93010; 96361; 96374-59; 96375; 96376; 99285-25; A9270; J1170; J2405; J2765; J3010; J3480; J7030; J7040; J7120; Q2038; Q9967

== ENCOUNTER 2020-03-17 09:06 | Day surgery (SDC) | payer MEDICARE, OTHER ==
[~2020-03-17] VITALS: Ht 144.8 cm; Wt 53.0 kg
[~2020-03-17 09:06] MED LIST changes: +EXEM25 PO; +FLUT.05NI; +LEVSOD25 PO; +Lovastatin20 MG PO; +METO25 PO; +MIRALAX17 GM PO; +Micro-K10 MEQ PO; +NORTRIPTYLINE H10 M1 PO; +OMEPRAZOLE MAGN20 MG PO; +Percocet 7.5-31 EACH PO; +TOPI50 PO; +TRAZ150T57 PO
== END 2020-03-17 11:25 | disposition home or self-care (01) ==
LOC: ORSCSDS 09:06
PROVIDERS: Internal Medicine Gastroenterology
PROC: 0DB68ZX Excision of Stomach, Via Natural or Artificial Opening Endoscopic, Diagnostic (ICD-10-PCS; principal; 2020-03-17 10:30)
PROC: 0DB88ZX Excision of Small Intestine, Via Natural or Artificial Opening Endoscopic, Diagnostic (ICD-10-PCS; principal; 2020-03-17 10:30)
DX: R11.2 Nausea with vomiting, unspecified (principal); R93.5 Abnormal findings on diagnostic imaging of other abdominal regions, including retroperitoneum; K29.70 Gastritis, unspecified, without bleeding; K20.80 Other esophagitis without bleeding; K44.9 Diaphragmatic hernia without obstruction or gangrene; Z79.899 Other long term (current) drug therapy
CPT/HCPCS: 88305; 88342; J2704; J7120

== ENCOUNTER → 2020-08-07 | Outpatient (CLI) | payer MEDICARE, OTHER ==
[2020-08-08 08:09] LABS: Candida species (DNA Probe) Negative (NEGATIVE); G. vaginalis (DNA Probe) Negative (NEGATIVE); T. vaginalis (DNA Probe) Negative (NEGATIVE)
[2020-08-08 16:10] LABS: HPV 16 Negative (Negative); HPV 18 Negative (Negative); HPV OTHER HR TYPES Negative (Negative)
== END | disposition home or self-care (01) ==
LOC: LAB UCHC 13:36 → LAB 13:36 → LAB SHORT 13:36
PROVIDERS: Internal Medicine
DX: Z01.419 Encounter for gynecological examination (general) (routine) without abnormal findings (principal)
CPT/HCPCS: 87480; 87510; 87624; 87660; G0123

== ENCOUNTER → 2020-11-06 | Outpatient (CLI) | payer MEDICARE, OTHER ==
[2020-11-06 14:52] LABS: BASOPHILS ABSOLUTE AUTO 0.04 K/mm3 (0.00-0.23); BASOPHILS PERCENT AUTO 1 % (0-2); EOSINOPHILS ABSOLUTE AUTO 0.02 K/mm3 (0.00-0.68); EOSINOPHILS PERCENT AUTO 1 % (0-6); Hematocrit 36.5 % (33.0-51.0); Hemoglobin 12.6 g/dL (11.5-16.0); IMMATURE GRAN ABSOLUTE AUTO 0.05 K/mm3 (0.00-0.10); IMMATURE GRAN PERCENT AUTO 1 % (0-1); LYMPHOCYTES ABSOLUTE AUTO 1.17 K/mm3 (0.84-5.20); LYMPHOCYTES PERCENT AUTO 27 % (21-46); MONOCYTES ABSOLUTE AUTO 0.48 K/mm3 (0.16-1.47); MONOCYTES PERCENT AUTO 11 % (4-13); Mean Corpuscular HGB 36.8 pg (26.0-34.0); Mean Corpuscular HGB Conc 34.5 g/dL (31.5-36.5); Mean Corpuscular Volume 107 fL (80-100); Mean Platelet Volume 10.6 fL (9.1-12.4); NEUTROPHILS ABSOLUTE AUTO 2.55 K/mm3 (1.96-9.15); NEUTROPHILS PERCENT AUTO 59 % (41-73); Platelet Count 290 K/mm3 (150-400); RDW Coefficient Variation 14.8 % (11.7-14.2); RDW Standard Deviation 57.9 fL (35.1-46.3); Red Blood Cell Count 3.42 M/mm3 (3.80-5.20); White Blood Cell Count 4.31 K/mm3 (4.00-11.30)
[2020-11-06 15:35] LABS: Alanine Aminotransfer (ALT/SGP 24 U/L (12-78); Albumin, Blood 3.4 g/dL (3.4-5.0); Albumin/Globulin Ratio 0.8 (0.8-1.8); Alk Phos 42 U/L (50-136); Anion Gap 12 mmol/L (6-16); Aspartate Aminotrans (AST/SGOT 45 U/L (12-37); Bilirubin, Total 0.2 mg/dL (0.1-1.0); Blood Urea Nitrogen 6 mg/dL (8-24); Bun/Creatinine Ratio 10.2 (12.0-20.0); CO2, Blood 18 mmol/L (21-32); Calcium, Blood 8.8 mg/dL (8.5-10.1); Chloride, Blood 109 mmol/L (98-108); Creatinine, Blood 0.59 mg/dL (0.40-1.00); Glomerular Filtration Rate >60 (60-); Glucose, Blood 60 mg/dL (70-99); Potassium, Blood 3.2 mmol/L (3.5-5.5); Sodium, Blood 139 mmol/L (136-145); Total Protein, Blood 7.4 g/dL (6.4-8.2)
== END | disposition home or self-care (01) ==
LOC: LAB SHORT 11:00
PROVIDERS: Internal Medicine
DX: E03.9 Hypothyroidism, unspecified (principal); K31.84 Gastroparesis; R11.2 Nausea with vomiting, unspecified
CPT/HCPCS: 80053; 84443; 85025

== ENCOUNTER 2021-02-10 12:23 | Inpatient (IN) | payer MEDICARE, OTHER ==
[~2021-02-10] VITALS: Ht 144.8 cm; Wt 47.0 kg
[2021-02-10 13:13] LABS: BASOPHILS ABSOLUTE AUTO 0.04 K/mm3 (0.00-0.23); BASOPHILS PERCENT AUTO 1 % (0-2); EOSINOPHILS ABSOLUTE AUTO 0.03 K/mm3 (0.00-0.68); EOSINOPHILS PERCENT AUTO 0 % (0-6); Hematocrit 39.6 % (33.0-51.0); Hemoglobin 13.8 g/dL (11.5-16.0); IMMATURE GRAN ABSOLUTE AUTO 0.05 K/mm3 (0.00-0.10); IMMATURE GRAN PERCENT AUTO 1 % (0-1); LYMPHOCYTES PERCENT AUTO 18 % (21-46); MONOCYTES ABSOLUTE AUTO 0.87 K/mm3 (0.16-1.47); MONOCYTES PERCENT AUTO 12 % (4-13); Mean Corpuscular HGB 35.5 pg (26.0-34.0); Mean Corpuscular HGB Conc 34.8 g/dL (31.5-36.5); Mean Corpuscular Volume 102 fL (80-100); Mean Platelet Volume 11.5 fL (9.1-12.4); NEUTROPHILS ABSOLUTE AUTO 5.02 K/mm3 (1.96-9.15); NEUTROPHILS PERCENT AUTO 69 % (41-73); Platelet Count 407 K/mm3 (150-400); RDW Coefficient Variation 15.5 % (11.7-14.2); RDW Standard Deviation 54.4 fL (35.1-46.3); Red Blood Cell Count 3.89 M/mm3 (3.80-5.20); White Blood Cell Count 7.31 K/mm3 (4.00-11.30)
[2021-02-10 13:43] LABS: Alanine Aminotransfer (ALT/SGP 26 U/L (12-78); Albumin, Blood 2.9 g/dL (3.4-5.0); Albumin/Globulin Ratio 0.6 (0.8-1.8); Alk Phos 67 U/L (50-136); Anion Gap 9 mmol/L (6-16); Aspartate Aminotrans (AST/SGOT 41 U/L (12-37); Bilirubin, Total 0.2 mg/dL (0.1-1.0); Blood Urea Nitrogen 11 mg/dL (8-24); Bun/Creatinine Ratio 15.9 (12.0-20.0); CO2, Blood 26 mmol/L (21-32); Calcium, Blood 9.1 mg/dL (8.5-10.1); Chloride, Blood 104 mmol/L (98-108); Creatinine, Blood 0.69 mg/dL (0.40-1.00); Globulin, Blood 4.9 g/dL (2.2-4.0); Glomerular Filtration Rate >60 (60-); Glucose, Blood 69 mg/dL (70-99); Potassium, Blood 2.9 mmol/L (3.5-5.5); Sodium, Blood 139 mmol/L (136-145); Total Protein, Blood 7.8 g/dL (6.4-8.2)
[2021-02-10 17:26] LABS: Influenza A, PCR NEGATIVE (NEGATIVE); Influenza B, PCR NEGATIVE (NEGATIVE); Resp Syncytial Virus, PCR NEGATIVE (NEGATIVE); SARS-Cov-2 (COVID-19) PCR, MMC NEGATIVE (NEGATIVE)
--- NOTE | 2021-02-11 04:17 | NUR ---
SHIFT SUMMARY: A&OX4, INTERMITTENT NAUSEA, PAIN CONTROLLED WITH PRN PERCOCET, PATIENT HAD MULTIPLE HYPOGLYCEMIC EPISODES ON NO NOC,PRN D50 GIVEN. [id number]@100/HR. @100/HR. AMBULATES TO BATHROOM, STEADY GAIT, NO USE OF ASSISTIVE DEVICES, SBA DUE TO CONTINOUS IVF AND HYPOGLYCEMIA.
[2021-02-11 05:19] LABS: BASOPHILS ABSOLUTE AUTO 0.04 K/mm3 (0.00-0.23); BASOPHILS PERCENT AUTO 1 % (0-2); EOSINOPHILS ABSOLUTE AUTO 0.06 K/mm3 (0.00-0.68); EOSINOPHILS PERCENT AUTO 1 % (0-6); Hematocrit 32.2 % (33.0-51.0); Hemoglobin 11.6 g/dL (11.5-16.0); IMMATURE GRAN ABSOLUTE AUTO 0.05 K/mm3 (0.00-0.10); IMMATURE GRAN PERCENT AUTO 1 % (0-1); LYMPHOCYTES ABSOLUTE AUTO 1.44 K/mm3 (0.84-5.20); LYMPHOCYTES PERCENT AUTO 27 % (21-46); MONOCYTES ABSOLUTE AUTO 0.85 K/mm3 (0.16-1.47); MONOCYTES PERCENT AUTO 16 % (4-13); Mean Corpuscular HGB 35.4 pg (26.0-34.0); Mean Corpuscular Volume 98 fL (80-100); Mean Platelet Volume 10.6 fL (9.1-12.4); NEUTROPHILS ABSOLUTE AUTO 2.92 K/mm3 (1.96-9.15); NEUTROPHILS PERCENT AUTO 55 % (41-73); Platelet Count 309 K/mm3 (150-400); RDW Coefficient Variation 13.4 % (11.7-14.2); RDW Standard Deviation 48.6 fL (35.1-46.3); Red Blood Cell Count 3.28 M/mm3 (3.80-5.20); White Blood Cell Count 5.36 K/mm3 (4.00-11.30)
[2021-02-11 06:13] LABS: Alanine Aminotransfer (ALT/SGP 27 U/L (12-78); Albumin, Blood 2.2 g/dL (3.4-5.0); Alk Phos 58 U/L (50-136); Anion Gap 7 mmol/L (6-16); Aspartate Aminotrans (AST/SGOT 55 U/L (12-37); Bilirubin, Total 0.2 mg/dL (0.1-1.0); Blood Urea Nitrogen 4 mg/dL (8-24); Bun/Creatinine Ratio 7.8 (12.0-20.0); CO2, Blood 25 mmol/L (21-32); Calcium, Blood 8.4 mg/dL (8.5-10.1); Chloride, Blood 111 mmol/L (98-108); Creatinine, Blood 0.51 mg/dL (0.40-1.00); Glomerular Filtration Rate >60 (60-); Glucose, Blood 123 mg/dL (70-99); Magnesium, Blood 2.2 mg/dL (1.6-2.4); Phosphorus, Blood 1.3 mg/dL (2.5-4.9); Potassium, Blood 2.6 mmol/L (3.5-5.5); Sodium, Blood 143 mmol/L (136-145)
[2021-02-11 06:14] LABS: Albumin/Globulin Ratio 0.7 (0.8-1.8); Globulin, Blood 3.3 g/dL (2.2-4.0); Total Protein, Blood 5.5 g/dL (6.4-8.2)
--- NOTE | 2021-02-11 11:14 | NUR ---
Responded to a spiritual care request. Pt. was sitting up in bed and alert. Pt. welcomed me. Pt. was unsettled about the unkowns of her current diagnosis. Established rapport, and facilitated a life review. Explored sources of purpose in her life. Pt. displayed increased resolve to get well so she could continue to care for her father. Pastoral prayer was given and pt. verbalized gratitude and restored carlitos in both God and the hospital.
[2021-02-11 20:21] LABS: Albumin, Blood 2.4 g/dL (3.4-5.0); Anion Gap 7 mmol/L (6-16); Blood Urea Nitrogen 2 mg/dL (8-24); Bun/Creatinine Ratio 4.3 (12.0-20.0); CO2, Blood 23 mmol/L (21-32); Calcium, Blood 8.5 mg/dL (8.5-10.1); Chloride, Blood 110 mmol/L (98-108); Creatinine, Blood 0.47 mg/dL (0.40-1.00); Glomerular Filtration Rate >60 (60-); Glucose, Blood 89 mg/dL (70-99); Phosphorus, Blood 4.2 mg/dL (2.5-4.9); Potassium, Blood 4.2 mmol/L (3.5-5.5); Sodium, Blood 140 mmol/L (136-145)
[2021-02-12 05:11] LABS: BASOPHILS ABSOLUTE AUTO 0.06 K/mm3 (0.00-0.23); BASOPHILS PERCENT AUTO 1 % (0-2); EOSINOPHILS ABSOLUTE AUTO 0.08 K/mm3 (0.00-0.68); EOSINOPHILS PERCENT AUTO 1 % (0-6); Hematocrit 34.9 % (33.0-51.0); Hemoglobin 11.9 g/dL (11.5-16.0); IMMATURE GRAN ABSOLUTE AUTO 0.04 K/mm3 (0.00-0.10); IMMATURE GRAN PERCENT AUTO 1 % (0-1); LYMPHOCYTES PERCENT AUTO 21 % (21-46); MONOCYTES ABSOLUTE AUTO 1.04 K/mm3 (0.16-1.47); MONOCYTES PERCENT AUTO 14 % (4-13); Mean Corpuscular HGB 35.6 pg (26.0-34.0); Mean Corpuscular HGB Conc 34.1 g/dL (31.5-36.5); Mean Platelet Volume 10.5 fL (9.1-12.4); NEUTROPHILS ABSOLUTE AUTO 4.69 K/mm3 (1.96-9.15); NEUTROPHILS PERCENT AUTO 63 % (41-73); Platelet Count 256 K/mm3 (150-400); RDW Coefficient Variation 14.5 % (11.7-14.2); Red Blood Cell Count 3.34 M/mm3 (3.80-5.20); White Blood Cell Count 7.51 K/mm3 (4.00-11.30)
[2021-02-12 05:12] LABS: Mean Corpuscular Volume 105 fL (80-100)
[2021-02-12 05:56] LABS: LDL/HDL RATIO 0.2; Very Low Density Lipoprot Chol 20 mg/dL (6-32)
[2021-02-12 06:12] LABS: Alanine Aminotransfer (ALT/SGP 34 U/L (12-78); Albumin/Globulin Ratio 0.5 (0.8-1.8); Alk Phos 56 U/L (50-136); Anion Gap 7 mmol/L (6-16); Aspartate Aminotrans (AST/SGOT 72 U/L (12-37); Bilirubin, Total 0.1 mg/dL (0.1-1.0); Blood Urea Nitrogen <1 mg/dL (8-24); Bun/Creatinine Ratio Unable to Calculate (12.0-20.0); CHOL/HDL RATIO 1.6; CO2, Blood 23 mmol/L (21-32); Calcium, Blood 8.4 mg/dL (8.5-10.1); Chloride, Blood 111 mmol/L (98-108); Cholesterol 101 mg/dL (50-200); Creatinine, Blood 0.45 mg/dL (0.40-1.00); Globulin, Blood 3.8 g/dL (2.2-4.0); Glomerular Filtration Rate >60 (60-); Glucose, Blood 91 mg/dL (70-99); HDL Cholesterol 65 mg/dL (>39); Low Density Lipoprotein Chol 16 mg/dL (0-110); Potassium, Blood 3.4 mmol/L (3.5-5.5); Sodium, Blood 141 mmol/L (136-145); Total Protein, Blood 5.8 g/dL (6.4-8.2); Triglycerides 102 mg/dL (30-160)
--- NOTE | 2021-02-12 07:12 | NUR ---
SHIFT SUMMARY: A&OX4, NO COMPLAINTS OF NAUSEA THIS SHIFT. BLOOD SUGAR RUNNING LOW. PATIENTS INFUSION ON D5LRK WAS INTERUPTED DUE TO NEEDING NEW IV ACCESS. PATIENT WAS GIVEN GRAPE JUICE. CBG INCREASING, INFUSION RESTARTED. SLEPT WELL THROUGH THE NIGHT.
--- NOTE | 2021-02-12 18:58 | NUR ---
PT AAOX4 ABLE TO VOICED NEEDS, NO COMPLIANTS VOICED. PT CONTINUES ON RA,NO DISTRESS NOTED. SWALLOW EVAL DONE DIET UPGRADED TO SOFT BITES. IV POTASSIUM GIVEN NO ADVERSE REACTION NOTED. IV ACESS TO NARCISA, PATENT NO SWELLING OR REDNESS NOTED. BED IN LOWEST POSITION. CALL LIGHT IN REACH.
--- NOTE | 2021-02-13 04:50 | NUR ---
SHIFT SUMMARY: PATIENT IS A&O X4, UP TO THE BATHROOM WITH SBA X1. TOLERATING DIET WELL. BLOOD GLUCOSE HAS BEEN 88,74. PATIENT HAS HAD AN ICE CREAM SNACK WITH BOTH READINGS. PERCOCET WAS GIVEN FOR CHRONIC LEFT AXILA PAIN X1 WITH GOOD EFFECT.
[2021-02-13 06:18] LABS: Albumin, Blood 2.1 g/dL (3.4-5.0); Anion Gap 10 mmol/L (6-16); Blood Urea Nitrogen 2 mg/dL (8-24); Bun/Creatinine Ratio 4.4 (12.0-20.0); CO2, Blood 23 mmol/L (21-32); Calcium, Blood 8.9 mg/dL (8.5-10.1); Chloride, Blood 109 mmol/L (98-108); Creatinine, Blood 0.46 mg/dL (0.40-1.00); Glomerular Filtration Rate >60 (60-); Glucose, Blood 79 mg/dL (70-99); Magnesium, Blood 2.1 mg/dL (1.6-2.4); Phosphorus, Blood 4.3 mg/dL (2.5-4.9); Potassium, Blood 4.3 mmol/L (3.5-5.5); Sodium, Blood 142 mmol/L (136-145)
[2021-02-13] MEDS ORDERED: PANT40 PO (11:30)
[2021-02-13] MEDS ORDERED: DOCU100 PO (11:32)
[2021-02-13] MEDS ORDERED: Ondansetron Odt8 MG MM (11:33)
[2021-02-13] MEDS ORDERED: METO5A PO (11:33)
--- NOTE | 2021-02-13 16:14 | NUR ---
PT IS AAAOX 4, ABLE TO MAKE NEEDS KNOWN. COMPLIANT WITH MEDICATIN REGIMEN. BSG WNL AT THIS TIME. NO COMPLAINTS VOICED. PT'S SISTER IS AT BEDSIDE. PT ON RA, NO DISTRESS NOTED. D/C HOME WITH HOME HEALTH, NO CONCERNS VOICED.
== END 2021-02-13 12:34 | disposition home or self-care (01) | DRG 392 ==
LOC: ER 12:23 → MEDS 12:24 → ENPENDDIS 02-13 10:57 → MEDS 02-13 12:34
PROVIDERS: Emergency Medicine; Physician Assistant; Student in an Organized Health Care Education/Training Program; ADMIT Internal Medicine
DX: K31.84 Gastroparesis (principal); K59.00 Constipation, unspecified; E16.2 Hypoglycemia, unspecified; E87.6 Hypokalemia; I10 Essential (primary) hypertension; E78.5 Hyperlipidemia, unspecified; Z20.822 Contact with and (suspected) exposure to COVID-19; Z90.49 Acquired absence of other specified parts of digestive tract; Z85.3 Personal history of malignant neoplasm of breast; E03.9 Hypothyroidism, unspecified; Z66 Do not resuscitate; Z90.12 Acquired absence of left breast and nipple; Z92.21 Personal history of antineoplastic chemotherapy; Z92.3 Personal history of irradiation; E83.39 Other disorders of phosphorus metabolism; E86.0 Dehydration; Z88.5 Allergy status to narcotic agent; E78.00 Pure hypercholesterolemia, unspecified; K21.9 Gastro-esophageal reflux disease without esophagitis; G43.909 Migraine, unspecified, not intractable, without status migrainosus
CPT/HCPCS: 0241U; 36415; 74176; 80053; 80061; 80069; 82306; 82533; 82607; 82746; 82947; 83690; 83735; 84100; 84132; 84443; 84681; 85025; 92610; 96365; 96372; 96375; 96376; 99285-25; A9270; C9113; G0378; J1650; J2405; J3480; J7030; J7060; J7120; J7121; J7799

== ENCOUNTER → 2021-06-29 | Outpatient (CLI) | payer MEDICARE, OTHER ==
[~2021-06-29] MED LIST changes: +DOCU100 PO; +Ondansetron Odt8 MG MM; +PANT40 PO
[2021-06-29 19:09] LABS: BASOPHILS ABSOLUTE AUTO 0.05 K/mm3 (0.00-0.23); BASOPHILS PERCENT AUTO 1 % (0-2); EOSINOPHILS ABSOLUTE AUTO 0.03 K/mm3 (0.00-0.68); EOSINOPHILS PERCENT AUTO 1 % (0-6); Hematocrit 36.7 % (33.0-51.0); Hemoglobin 12.4 g/dL (11.5-16.0); IMMATURE GRAN ABSOLUTE AUTO 0.02 K/mm3 (0.00-0.10); IMMATURE GRAN PERCENT AUTO 0 % (0-1); LYMPHOCYTES ABSOLUTE AUTO 1.98 K/mm3 (0.84-5.20); LYMPHOCYTES PERCENT AUTO 34 % (21-46); MONOCYTES ABSOLUTE AUTO 0.68 K/mm3 (0.16-1.47); MONOCYTES PERCENT AUTO 12 % (4-13); Mean Corpuscular HGB 32.8 pg (26.0-34.0); Mean Corpuscular HGB Conc 33.8 g/dL (31.5-36.5); Mean Corpuscular Volume 97 fL (80-100); Mean Platelet Volume 10.4 fL (9.1-12.4); NEUTROPHILS ABSOLUTE AUTO 3.04 K/mm3 (1.96-9.15); NEUTROPHILS PERCENT AUTO 53 % (41-73); Platelet Count 411 K/mm3 (150-400); RDW Coefficient Variation 14.2 % (11.7-14.2); RDW Standard Deviation 50.4 fL (35.1-46.3); Red Blood Cell Count 3.78 M/mm3 (3.80-5.20)
[2021-06-29 20:41] LABS: Albumin, Blood 3.6 g/dL (3.4-5.0); Albumin/Globulin Ratio 0.9 (0.8-1.8); Bilirubin, Total 0.4 mg/dL (0.1-1.0); Bun/Creatinine Ratio 21.3 (12.0-20.0); Calcium, Blood 8.9 mg/dL (8.5-10.1); Creatinine, Blood 0.47 mg/dL (0.40-1.00); Globulin, Blood 4.1 g/dL (2.2-4.0); Potassium, Blood 3.8 mmol/L (3.5-5.5); Total Protein, Blood 7.7 g/dL (6.4-8.2)
== END | disposition home or self-care (01) ==
LOC: LAB 15:40 → LAB SHORT 15:40
PROVIDERS: Internal Medicine
DX: R10.13 Epigastric pain (principal)
CPT/HCPCS: 80053; 83690; 85025

== ENCOUNTER → 2022-06-21 | Outpatient (CLI) | payer MEDICARE, OTHER ==
[2022-06-21 20:42] LABS: Free Thyroxine 0.63 ng/dL (0.70-1.60); Thyroid Stimulating Hormone 2.28 uIU/mL (0.360-4.800); Triiodothyronine, Free 1.74 pg/mL (2.18-3.98)
== END | disposition home or self-care (01) ==
LOC: LAB 17:02 → LAB SHORT 17:02
PROVIDERS: Family Medicine
DX: R53.83 Other fatigue (principal)
CPT/HCPCS: 84439; 84443; 84481

== ENCOUNTER → 2022-07-07 | Outpatient (CLI) | payer MEDICARE, OTHER ==
[~2022-07-07] MED LIST changes: +FERSU300 PO; +OMEP20ER PO
== END | disposition home or self-care (01) ==
LOC: LAB SHORT 15:32 → LAB 15:32
DX: Z51.81 Encounter for therapeutic drug level monitoring (principal); Z79.899 Other long term (current) drug therapy
CPT/HCPCS: G0480

== ENCOUNTER 2022-07-13 15:23 | Emergency (ER) | payer MEDICARE, OTHER ==
[~2022-07-13] VITALS: Ht 144.8 cm; Wt 44.0 kg
[~2022-07-13 15:23] MED LIST changes: -FERSU300 PO; -OMEP20ER PO
[2022-07-13 16:34] LABS: BASOPHILS ABSOLUTE AUTO 0.06 K/mm3 (0.00-0.23); BASOPHILS PERCENT AUTO 2 % (0-2); EOSINOPHILS ABSOLUTE AUTO 0.03 K/mm3 (0.00-0.68); EOSINOPHILS PERCENT AUTO 1 % (0-6); Hematocrit 41.7 % (33.0-51.0); Hemoglobin 14.1 g/dL (11.5-16.0); IMMATURE GRAN ABSOLUTE AUTO 0.02 K/mm3 (0.00-0.10); IMMATURE GRAN PERCENT AUTO 1 % (0-1); LYMPHOCYTES ABSOLUTE AUTO 1.53 K/mm3 (0.84-5.20); LYMPHOCYTES PERCENT AUTO 39 % (21-46); MONOCYTES ABSOLUTE AUTO 0.51 K/mm3 (0.16-1.47); MONOCYTES PERCENT AUTO 13 % (4-13); Mean Corpuscular HGB 34.1 pg (26.0-34.0); Mean Corpuscular HGB Conc 33.8 g/dL (31.5-36.5); Mean Corpuscular Volume 101 fL (80-100); Mean Platelet Volume 9.7 fL (9.1-12.4); NEUTROPHILS ABSOLUTE AUTO 1.73 K/mm3 (1.96-9.15); NEUTROPHILS PERCENT AUTO 45 % (41-73); Platelet Count 298 K/mm3 (150-400); RDW Coefficient Variation 16.9 % (11.7-14.2); RDW Standard Deviation 63.6 fL (35.1-46.3); Red Blood Cell Count 4.13 M/mm3 (3.80-5.20); White Blood Cell Count 3.88 K/mm3 (4.00-11.30)
[2022-07-13] MEDS ORDERED: FERSU300 PO (16:51)
[2022-07-13] MEDS ORDERED: OMEP20ER PO ×2 (16:51→16:52)
[2022-07-13 16:56] LABS: Albumin, Blood 3.4 g/dL (3.4-5.0); Albumin/Globulin Ratio 0.8 (0.8-1.8); Bilirubin, Total 0.4 mg/dL (0.1-1.0); Bun/Creatinine Ratio 13.8 (12.0-20.0); Calcium, Blood 8.9 mg/dL (8.5-10.1); Creatinine, Blood 0.65 mg/dL (0.40-1.00); Globulin, Blood 4.3 g/dL (2.2-4.0); Potassium, Blood 4.2 mmol/L (3.5-5.5); Total Protein, Blood 7.7 g/dL (6.4-8.2)
[2022-07-13 17:45] VITALS: BP 117/62
== END 2022-07-13 22:18 | disposition home or self-care (01) ==
LOC: ER 15:23
PROVIDERS: Emergency Medicine
DX: K52.9 Noninfective gastroenteritis and colitis, unspecified (principal); D72.819 Decreased white blood cell count, unspecified; I10 Essential (primary) hypertension; E03.9 Hypothyroidism, unspecified; K21.9 Gastro-esophageal reflux disease without esophagitis; E78.5 Hyperlipidemia, unspecified; Z88.5 Allergy status to narcotic agent; Z79.899 Other long term (current) drug therapy
CPT/HCPCS: 74177; 80053; 83690; 84484; 85025; A9270; J0500; J1200; J1885; J2405; J2765; J7030; Q9967

== ENCOUNTER 2022-08-29 10:56 | Emergency (ER) | payer MEDICARE, OTHER ==
[~2022-08-29] VITALS: Ht 144.8 cm; Wt 40.8 kg
[~2022-08-29 10:56] MED LIST changes: +FERSU300 PO; +OMEP20ER PO
[2022-08-29 12:41] LABS: BASOPHILS ABSOLUTE AUTO 0.04 K/mm3 (0.00-0.23); BASOPHILS PERCENT AUTO 0 % (0-2); EOSINOPHILS ABSOLUTE AUTO 0.01 K/mm3 (0.00-0.68); EOSINOPHILS PERCENT AUTO 0 % (0-6); Hematocrit 38.3 % (33.0-51.0); Hemoglobin 13.2 g/dL (11.5-16.0); IMMATURE GRAN ABSOLUTE AUTO 0.06 K/mm3 (0.00-0.10); IMMATURE GRAN PERCENT AUTO 1 % (0-1); LYMPHOCYTES ABSOLUTE AUTO 0.95 K/mm3 (0.84-5.20); LYMPHOCYTES PERCENT AUTO 8 % (21-46); MONOCYTES ABSOLUTE AUTO 0.63 K/mm3 (0.16-1.47); MONOCYTES PERCENT AUTO 5 % (4-13); Mean Corpuscular HGB 35.1 pg (26.0-34.0); Mean Corpuscular HGB Conc 34.5 g/dL (31.5-36.5); Mean Corpuscular Volume 102 fL (80-100); Mean Platelet Volume 9.7 fL (9.1-12.4); NEUTROPHILS ABSOLUTE AUTO 10.78 K/mm3 (1.96-9.15); NEUTROPHILS PERCENT AUTO 86 % (41-73); Platelet Count 276 K/mm3 (150-400); RDW Coefficient Variation 15.4 % (11.7-14.2); RDW Standard Deviation 57.6 fL (35.1-46.3); Red Blood Cell Count 3.76 M/mm3 (3.80-5.20); White Blood Cell Count 12.47 K/mm3 (4.00-11.30)
[2022-08-29 12:51] LABS: Albumin, Blood 2.9 g/dL (3.4-5.0); Albumin/Globulin Ratio 0.6 (0.8-1.8); Bilirubin, Total 0.2 mg/dL (0.1-1.0); Calcium, Blood 9.4 mg/dL (8.5-10.1); Creatinine, Blood 0.63 mg/dL (0.40-1.00); Globulin, Blood 4.8 g/dL (2.2-4.0); Potassium, Blood 3.4 mmol/L (3.5-5.5); Total Protein, Blood 7.7 g/dL (6.4-8.2)
[2022-08-29] MEDS ORDERED: CEPH500 PO (15:44)
[2022-08-29 16:22] VITALS: BP 141/80
== END 2022-08-29 16:26 | disposition home or self-care (01) ==
LOC: ER 10:56
PROVIDERS: Family Medicine
DX: L03.114 Cellulitis of left upper limb (principal); I89.0 Lymphedema, not elsewhere classified; R11.2 Nausea with vomiting, unspecified; R10.13 Epigastric pain; R51.9 Headache, unspecified; R29.898 Other symptoms and signs involving the musculoskeletal system; R68.83 Chills (without fever); I10 Essential (primary) hypertension; E03.9 Hypothyroidism, unspecified; E78.00 Pure hypercholesterolemia, unspecified; K21.9 Gastro-esophageal reflux disease without esophagitis; Z85.3 Personal history of malignant neoplasm of breast; Z88.5 Allergy status to narcotic agent; Z79.899 Other long term (current) drug therapy
CPT/HCPCS: 71046; 80053; 83690; 84484; 85025; 93005; 93010; 93971; 96374; 96375; 99284-25; A9270; J1170; J2765

== ENCOUNTER 2022-09-12 14:00 | Emergency (ER) | payer MEDICARE, OTHER ==
[~2022-09-12] VITALS: Ht 144.8 cm; Wt 44.0 kg
[~2022-09-12 14:00] MED LIST changes: +CEPH500 PO
[2022-09-12 15:17] LABS: BASOPHILS ABSOLUTE AUTO 0.09 K/mm3 (0.00-0.23); BASOPHILS PERCENT AUTO 2 % (0-2); EOSINOPHILS ABSOLUTE AUTO 0.04 K/mm3 (0.00-0.68); EOSINOPHILS PERCENT AUTO 1 % (0-6); Hematocrit 42.5 % (33.0-51.0); Hemoglobin 14.5 g/dL (11.5-16.0); IMMATURE GRAN ABSOLUTE AUTO 0.02 K/mm3 (0.00-0.10); IMMATURE GRAN PERCENT AUTO 0 % (0-1); LYMPHOCYTES ABSOLUTE AUTO 1.85 K/mm3 (0.84-5.20); LYMPHOCYTES PERCENT AUTO 36 % (21-46); MONOCYTES ABSOLUTE AUTO 0.76 K/mm3 (0.16-1.47); MONOCYTES PERCENT AUTO 15 % (4-13); Mean Corpuscular HGB Conc 34.1 g/dL (31.5-36.5); Mean Corpuscular Volume 103 fL (80-100); Mean Platelet Volume 9.5 fL (9.1-12.4); NEUTROPHILS ABSOLUTE AUTO 2.33 K/mm3 (1.96-9.15); NEUTROPHILS PERCENT AUTO 46 % (41-73); Platelet Count 376 K/mm3 (150-400); RDW Coefficient Variation 15.9 % (11.7-14.2); Red Blood Cell Count 4.14 M/mm3 (3.80-5.20); White Blood Cell Count 5.09 K/mm3 (4.00-11.30)
[2022-09-12 15:40] LABS: Albumin, Blood 2.8 g/dL (3.4-5.0); Albumin/Globulin Ratio 0.7 (0.8-1.8); Bilirubin, Total 0.3 mg/dL (0.1-1.0); Bun/Creatinine Ratio 12.2 (12.0-20.0); Calcium, Blood 8.2 mg/dL (8.5-10.1); Creatinine, Blood 0.66 mg/dL (0.40-1.00); Potassium, Blood 3.8 mmol/L (3.5-5.5); Total Protein, Blood 6.8 g/dL (6.4-8.2)
[2022-09-12 17:35] LABS: Source, Urine Clean Catch
[2022-09-12 17:46] LABS: Appearance, Urine Clear (Clear); Bilirubin, Urine Neg (Neg); Blood, Urine Neg (Neg); Color, Urine Yellow (P-Yellow); Glucose Qualitative, Urine Neg (Neg); Ketones, Urine Neg (Neg); Leukocyte Esterase, Urine Neg (Neg); Nitrite, Urine Neg (Neg); Protein, Urine Neg (Neg); Urobilinogen, Urine NORM (Normal)
[2022-09-12] MEDS ORDERED: DICY20 PO (18:34)
[2022-09-12] MEDS ORDERED: LORA.5 PO (18:34)
[2022-09-12 18:47] VITALS: BP 110/68
== END 2022-09-12 19:14 | disposition home or self-care (01) ==
LOC: ER 14:00
PROVIDERS: Student in an Organized Health Care Education/Training Program
DX: K52.9 Noninfective gastroenteritis and colitis, unspecified (principal); G43.909 Migraine, unspecified, not intractable, without status migrainosus; I10 Essential (primary) hypertension; K21.9 Gastro-esophageal reflux disease without esophagitis; E03.9 Hypothyroidism, unspecified; Z79.2 Long term (current) use of antibiotics; Z79.899 Other long term (current) drug therapy; Z79.1 Long term (current) use of non-steroidal anti-inflammatories (NSAID); Z79.890 Hormone replacement therapy; Z88.5 Allergy status to narcotic agent
CPT/HCPCS: 74177; 80053; 81003; 83690; 85025; 93005; 93010; 96361; 96374; 96375; 96376; 99284-25; J1200; J2060; J2765; J3010; J7030; Q9967

== ENCOUNTER → 2023-02-09 | Outpatient (CLI) | payer MEDICARE, OTHER ==
[~2023-02-09] MED LIST changes: +DICY20 PO
[2023-02-09 18:43] LABS: BASOPHILS ABSOLUTE AUTO 0.08 K/mm3 (0.00-0.23); BASOPHILS PERCENT AUTO 1 % (0-2); EOSINOPHILS ABSOLUTE AUTO 0.04 K/mm3 (0.00-0.68); EOSINOPHILS PERCENT AUTO 1 % (0-6); Hematocrit 40.1 % (33.0-51.0); Hemoglobin 13.5 g/dL (11.5-16.0); IMMATURE GRAN ABSOLUTE AUTO 0.02 K/mm3 (0.00-0.10); IMMATURE GRAN PERCENT AUTO 0 % (0-1); LYMPHOCYTES ABSOLUTE AUTO 1.76 K/mm3 (0.84-5.20); LYMPHOCYTES PERCENT AUTO 31 % (21-46); MONOCYTES ABSOLUTE AUTO 0.65 K/mm3 (0.16-1.47); MONOCYTES PERCENT AUTO 12 % (4-13); Mean Corpuscular HGB 36.5 pg (26.0-34.0); Mean Corpuscular HGB Conc 33.7 g/dL (31.5-36.5); Mean Corpuscular Volume 108 fL (80-100); Mean Platelet Volume 9.6 fL (9.1-12.4); NEUTROPHILS ABSOLUTE AUTO 3.08 K/mm3 (1.96-9.15); NEUTROPHILS PERCENT AUTO 55 % (41-73); Platelet Count 289 K/mm3 (150-400); RDW Coefficient Variation 14.6 % (11.7-14.2); RDW Standard Deviation 58.4 fL (35.1-46.3); White Blood Cell Count 5.63 K/mm3 (4.00-11.30)
[2023-02-09 20:06] LABS: Albumin, Blood 3.4 g/dL (3.4-5.0); Bilirubin, Total 0.4 mg/dL (0.1-1.0); Bun/Creatinine Ratio 17.8 (12.0-20.0); Calcium, Blood 8.7 mg/dL (8.5-10.1); Creatinine, Blood 0.62 mg/dL (0.40-1.00); Globulin, Blood 3.4 g/dL (2.2-4.0); Potassium, Blood 3.3 mmol/L (3.5-5.5); Total Protein, Blood 6.8 g/dL (6.4-8.2)
== END ==
LOC: LAB SHORT 17:30 → LAB 17:30
PROVIDERS: Internal Medicine
DX: R10.13 Epigastric pain (principal)
CPT/HCPCS: 80053; 83690; 85025

== ENCOUNTER → 2023-06-23 | Outpatient (CLI) | payer MEDICARE, OTHER ==
[~2023-06-23] MED LIST changes: +ERGO50000 PO; +FLONASE ALLERG9.9 M2; -FLUT.05NI; +KETO60I IM; +KLOR-CON 1010 ME9 PO; -Micro-K10 MEQ PO; -Ondansetron Odt8 MG MM; +Ondansetron Odt8 MG SL; -Percocet 7.5-31 EACH PO; +SUCR1 PO
== END ==
LOC: LAB SHORT 18:45 → LAB 18:45
DX: N30.01 Acute cystitis with hematuria (principal)
CPT/HCPCS: 87077; 87086; 87147; 87186

== ENCOUNTER 2024-03-12 16:40 | Inpatient (IN) | payer MEDICARE, OTHER ==
[~2024-03-12] VITALS: Ht 147.3 cm; Wt 39.5 kg
[~2024-03-12 16:40] MED LIST changes: +CYCL10 PO; +Cymbalta20 MG PO; +FOLI1 PO; +VITAMIN D2 PO; +ZEBUTAL 50-3251 EAC1 PO
[2024-03-12 17:28] LABS: BASOPHILS ABSOLUTE AUTO 0.04 K/mm3 (0.00-0.23); BASOPHILS PERCENT AUTO 1 % (0-2); EOSINOPHILS ABSOLUTE AUTO 0.01 K/mm3 (0.00-0.68); EOSINOPHILS PERCENT AUTO 0 % (0-6); Hematocrit 41.7 % (33.0-51.0); Hemoglobin 14.7 g/dL (11.5-16.0); IMMATURE GRAN ABSOLUTE AUTO 0.09 K/mm3 (0.00-0.10); IMMATURE GRAN PERCENT AUTO 1 % (0-1); LYMPHOCYTES ABSOLUTE AUTO 1.44 K/mm3 (0.84-5.20); LYMPHOCYTES PERCENT AUTO 21 % (21-46); MONOCYTES ABSOLUTE AUTO 0.89 K/mm3 (0.16-1.47); MONOCYTES PERCENT AUTO 13 % (4-13); Mean Corpuscular HGB 36.9 pg (26.0-34.0); Mean Corpuscular HGB Conc 35.3 g/dL (31.5-36.5); Mean Corpuscular Volume 105 fL (80-100); Mean Platelet Volume 9.3 fL (9.1-12.4); NEUTROPHILS ABSOLUTE AUTO 4.28 K/mm3 (1.96-9.15); NEUTROPHILS PERCENT AUTO 64 % (41-73); NRBC ABSOLUTE 0.02 K/mm3 (0.00-0.02); NRBC Auto 0.3 /100 WBC (0.0-0.2); Platelet Count 331 K/mm3 (150-400); RDW Coefficient Variation 14.7 % (11.7-14.2); Red Blood Cell Count 3.98 M/mm3 (3.80-5.20); White Blood Cell Count 6.75 K/mm3 (4.00-11.30)
[2024-03-12 17:57] LABS: Albumin, Blood 2.6 g/dL (3.4-5.0); Albumin/Globulin Ratio 0.6 (0.8-1.8); Bilirubin, Total 0.4 mg/dL (0.1-1.0); Calcium, Blood 9.1 mg/dL (8.5-10.1); Creatinine, Blood 0.46 mg/dL (0.40-1.00); Globulin, Blood 4.7 g/dL (2.2-4.0); Potassium, Blood 3.5 mmol/L (3.5-5.5); Total Protein, Blood 7.3 g/dL (6.4-8.2)
[2024-03-12] MEDS ORDERED: NS 1,000 ML IV SCH (22:15)
[2024-03-12] MEDS ORDERED: OxyCODONE 7.5 mg/Acetam 325 mg TABLET PO ONE (22:50)
[2024-03-12 23:27] LABS: Source, Urine Clean Catch
[2024-03-12 23:30] LABS: Bilirubin, Urine Neg (Neg); Blood, Urine Neg (Neg); Glucose Qualitative, Urine Neg (Neg); Ketones, Urine Neg (Neg); Leukocyte Esterase, Urine 1+ (Neg); Nitrite, Urine Neg (Neg); Protein, Urine Neg (Neg); Urobilinogen, Urine NORM (Normal)
[2024-03-12 23:39] LABS: Appearance, Urine Clear (Clear); Color, Urine Yellow (P-Yellow)
[2024-03-12 23:40] LABS: Bacteria Rare /hpf; Mucus Light (0-Heavy); Red Blood Cells, Urine Not Seen /hpf (0-2); Squamous Epithelial Cells Rare /hpf (Few); White Blood Cells, Urine 0-2 /hpf (0-5)
[2024-03-13] MEDS ORDERED: NS 1,000 ML IV SCH (00:30)
[2024-03-13] MEDS ORDERED: Lactulose 20 GM/30 ML UDC PO ONE (00:55)
[2024-03-13] MEDS ORDERED: FLU VACC TS2024-25(6MOS UP)/PF 45 MCG/0.5 ML SYRINGE IM ONE (02:20)
[2024-03-13] MEDS ORDERED: Ondansetron HCl 2 MG / ML 2ML Vial IV PRN (02:20)
[2024-03-13] MEDS ORDERED: Acetaminophen 325 MG TABLET PO PRN (02:25)
[2024-03-13] MEDS ORDERED: CefTRIAXone Sodium 1,000 MG in NS 100 ML IV SCH (03:04)
[2024-03-13 05:59] LABS: BASOPHILS ABSOLUTE AUTO 0.02 K/mm3 (0.00-0.23); BASOPHILS PERCENT AUTO 0 % (0-2); EOSINOPHILS ABSOLUTE AUTO 0.01 K/mm3 (0.00-0.68); EOSINOPHILS PERCENT AUTO 0 % (0-6); Hematocrit 35.4 % (33.0-51.0); Hemoglobin 12.9 g/dL (11.5-16.0); IMMATURE GRAN ABSOLUTE AUTO 0.13 K/mm3 (0.00-0.10); IMMATURE GRAN PERCENT AUTO 2 % (0-1); LYMPHOCYTES ABSOLUTE AUTO 0.87 K/mm3 (0.84-5.20); LYMPHOCYTES PERCENT AUTO 13 % (21-46); MONOCYTES ABSOLUTE AUTO 0.74 K/mm3 (0.16-1.47); MONOCYTES PERCENT AUTO 11 % (4-13); Mean Corpuscular HGB 37.9 pg (26.0-34.0); Mean Corpuscular HGB Conc 36.4 g/dL (31.5-36.5); Mean Corpuscular Volume 104 fL (80-100); Mean Platelet Volume 9.4 fL (9.1-12.4); NEUTROPHILS ABSOLUTE AUTO 4.84 K/mm3 (1.96-9.15); NEUTROPHILS PERCENT AUTO 73 % (41-73); Platelet Count 295 K/mm3 (150-400); RDW Coefficient Variation 14.7 % (11.7-14.2); RDW Standard Deviation 55.7 fL (35.1-46.3); White Blood Cell Count 6.61 K/mm3 (4.00-11.30)
[2024-03-13 06:23] LABS: Albumin, Blood 2.3 g/dL (3.4-5.0); Albumin/Globulin Ratio 0.6 (0.8-1.8); Bilirubin, Total 0.3 mg/dL (0.1-1.0); Bun/Creatinine Ratio 15.2 (12.0-20.0); Calcium, Blood 8.1 mg/dL (8.5-10.1); Creatinine, Blood 0.33 mg/dL (0.40-1.00); Globulin, Blood 4.1 g/dL (2.2-4.0); Potassium, Blood 3.2 mmol/L (3.5-5.5); Total Protein, Blood 6.4 g/dL (6.4-8.2)
[2024-03-13] MEDS ORDERED: Lactobacil 2-S.Thermo-Bifido 1 1 Cap PO SCH (09:00)
[2024-03-13] MEDS ORDERED: Enoxaparin 40 MG/0.4 ML SYR SC SCH (09:00)
[2024-03-13] MEDS ORDERED: TOPI25 PO (09:28)
[2024-03-13] MEDS ORDERED: OXYCODONE-ACET1 EA13 PO (11:05)
[2024-03-13] MEDS ORDERED: METO5A PO (11:06)
[2024-03-13 11:07] VITALS: BP 137/73
[2024-03-13] MEDS ORDERED: D5W-1/2NS 1,000 ML IV SCH (12:15)
--- NOTE | 2024-03-13 13:09 | NUR ---
PT ARRIVED TO FLOOR AT 100 AOX3 WITH CONFUSION. PT CAN BE IMPULSIVE SISTER IS GOOD ABOUT HELPING ORIENT PT. PT SETTLED INTO ROOM AND CALL LIGHT WITHIN REACH WILL CONTINUE TO MONITOR. BED ALARM IN PLACE WITH SISTER IS NOT IN ROOM.
[2024-03-13] MEDS ORDERED: OxyCODONE HCL 5 MG TAB PO PRN (13:35)
[2024-03-13] MEDS ORDERED: Lactulose 20 GM/30 ML UDC PO SCH ×2 (14:00)
[2024-03-13] MEDS ORDERED: TraZODone HCl 100 MG Tab PO PRN (14:55)
[2024-03-13 15:00] LABS: Alpha Feto Protein, Tumor Mkr 7.9 ng/mL (0.0-8.0); Carcinoembryonic Antigen 2.7 ng/mL (0.0-3.0)
[2024-03-13] MEDS ORDERED: Acetamin/Butalbital/Caffeine Tab PO PRN (15:00)
[2024-03-13] MEDS ORDERED: Enoxaparin 30 MG/0.3 ML SYR SC SCH (15:16)
[2024-03-13] MEDS ORDERED: Fluticasone 0.05% Nasal Spray PRN (15:25)
--- NOTE | 2024-03-13 16:18 | NUR ---
PT HAS BEEN AOX3 WITH CONFUSION. PT HAS BEEN COOPERATIVE AND FOR THE MOST PART FOLLOWS ORDERS. MRI GOT MOST OF THE IMAGES DONE, BUT THEN PT WAS DONE. PT 1 PERSON ASSIST AND NEEDS BED ALARM SHE CAN BE IMPULSIVE IF SISTER IS NOT IN ROOM. PT TOOK HER LACTALOSE AND DRANK IT WELL, BUT THEN AFTER A BIT STARTED TO COUGH. TREATED FOR NAUSEA PER EMAR PT STILL COUGHING OFF AND ON. PT STATES SHE JUST DOES NOT FEEL WELL. CALL LIGHT IS IN REACH WILL CONTINUE TO MONITOR.
[2024-03-13 19:14] VITALS: BP 128/71
[2024-03-13] MEDS ORDERED: Omeprazole 20 MG CapCR PO SCH (21:00)
[2024-03-13] MEDS ORDERED: Metoprolol Tartrate 25 MG Tab PO SCH (21:00)
--- NOTE | 2024-03-14 03:58 | NUR ---
SHIFT SUMMARY NO ACUTE EVENTS DURING THIS SHIFT. PT IS A/O X2-3, COOPERATIVE WITH CARE, ABLE TO MAKE HER NEEDS KNOWN. 1800 DOSE OF LACTULOSE ADMINISTERED LATE, AFTER MRI. PT HAD MULTIPLE DARK BROWN LOOSE STOOLS DURING THE HS. PULLUPS IN PLACE. PT IS 1-PERSON ASSIST TO COMMODE. MEPILEX PLACED ON SACRAL AREA, SKIN REDDENED, C/D/I. D51/2NS INFUSING ORDERED. PT DENIES PAIN AND DISCOMFORT. SISTER IS SPENDING THE NIGHT IN THE HOSPITAL ROOM WITH THE PT FOR SUPPORT. BED AT THE LOWEST POSITION, CALL LIGHT W/I REACH.
[2024-03-14] MEDS ORDERED: NS 250 ML IV PRN (04:40)
[2024-03-14 04:59] VITALS: BP 125/80
[2024-03-14 06:00] LABS: BASOPHILS ABSOLUTE AUTO 0.03 K/mm3 (0.00-0.23); BASOPHILS PERCENT AUTO 0 % (0-2); EOSINOPHILS ABSOLUTE AUTO 0.01 K/mm3 (0.00-0.68); EOSINOPHILS PERCENT AUTO 0 % (0-6); Hematocrit 37.2 % (33.0-51.0); Hemoglobin 13.9 g/dL (11.5-16.0); IMMATURE GRAN PERCENT AUTO 1 % (0-1); LYMPHOCYTES ABSOLUTE AUTO 0.94 K/mm3 (0.84-5.20); LYMPHOCYTES PERCENT AUTO 11 % (21-46); MONOCYTES ABSOLUTE AUTO 1.01 K/mm3 (0.16-1.47); MONOCYTES PERCENT AUTO 12 % (4-13); Mean Corpuscular HGB 37.9 pg (26.0-34.0); Mean Corpuscular HGB Conc 37.4 g/dL (31.5-36.5); Mean Corpuscular Volume 101 fL (80-100); Mean Platelet Volume 9.3 fL (9.1-12.4); NEUTROPHILS ABSOLUTE AUTO 6.71 K/mm3 (1.96-9.15); NEUTROPHILS PERCENT AUTO 76 % (41-73); Platelet Count 340 K/mm3 (150-400); RDW Coefficient Variation 14.3 % (11.7-14.2); RDW Standard Deviation 53.6 fL (35.1-46.3); Red Blood Cell Count 3.67 M/mm3 (3.80-5.20)
[2024-03-14] MEDS ORDERED: Levothyroxine Sodium 0.025 MG Tab PO SCH (06:00)
[2024-03-14 06:36] LABS: Albumin, Blood 2.4 g/dL (3.4-5.0); Albumin/Globulin Ratio 0.6 (0.8-1.8); Bilirubin, Total 0.3 mg/dL (0.1-1.0); Bun/Creatinine Ratio 6.2 (12.0-20.0); Calcium, Blood 8.6 mg/dL (8.5-10.1); Creatinine, Blood 0.32 mg/dL (0.40-1.00); Globulin, Blood 4.3 g/dL (2.2-4.0); Potassium, Blood 2.4 mmol/L (3.5-5.5); Total Protein, Blood 6.7 g/dL (6.4-8.2)
--- NOTE | 2024-03-14 06:39 | NUR ---
CRITICAL LAB VALUE: POTASSIUM 2.4 RECEIVED FROM THE LAB @0636. THIS PHARMACY STUDENT CALLED WITH THE RESULTS @6147. NEW T-ORDER: 40MeQ POTASSIM CHLORIDE PO, Q 4HRS, TOTAL OF THREE DOSES. WILL ENTER TO [employer], SEE EMAR. CHARGE NURSE HATTIE Green NOTIFIED AT 0640.
[2024-03-14] MEDS ORDERED: Potassium Chloride 20 MEQ TabCR PO SCH (07:00)
[2024-03-14 07:56] VITALS: BP 126/70
[2024-03-14] MEDS ORDERED: Enoxaparin 30 MG/0.3 ML SYR SC SCH (09:00)
[2024-03-14] MEDS ORDERED: Potassium Chloride 10 Meq Tablet SA PO SCH (09:00)
[2024-03-14] MEDS ORDERED: Topiramate 25 MG Tab PO SCH (09:00)
[2024-03-14 15:48] VITALS: BP 131/68
--- NOTE | 2024-03-14 17:05 | NUR ---
PT IS AOX3 AND COOPERATIVE OF CARE. PT SEEMS TO BE IMPROVING THE DAY HAS PROGRESSED AND APPEARS STRONGER AND NOT WORE OUT. PT IS ABLE TO CALL AND MAKE MOST NEEDS KNOWN.CALL LIGHT IS IN REACH WILL CONTINUE TO MONITOR.
[2024-03-14 19:48] VITALS: BP 116/67
--- NOTE | 2024-03-14 20:23 | NUR ---
@215 THIS GENERAL STORE MANAGER RECEIVED A PHONE CALL FROM MARIANNE @LAB. - POTASSIUM LEVEL NOW 4.4. HEMOLYSIS IN THE SAMPLE +1, COULD RESULT IN FALSE POSITIVE.. @218 ALSO RECEIVED A PHONE CALL FROM COURTNEY FROM THE LAB: PHLOBOTOMY ATTEMPTED TO DRAW BLOOD TODAY, UNSUCCESSFUL. WILL ATTEMPT TOMORROW AM, LABS ARE SENDING OUT, NOT CRITICAL TESTS PER LAB. WILL NOTIFY CLINICAL RADIOLOGIST.
--- NOTE | 2024-03-15 03:12 | NUR ---
SHIFT SUMMARY PT A/O X3. SISTER AND BROTHER BY THE BEDSIDE. FATHER VISITED WELL. PER FAMILY, PT'S MENTATION IS IMPROVING. NO LOOSE BM'S DURING NIGHT HRS. @HS PT C/O 9/10 LEFT FLANK PAIN AND H/A. MEDICATED PER EMAR WITH PRN PERCOCET WITH GOOD EFFECTIVNESS. D51/2 NS INFUSING ORDERED 100MLS/HR. NO ACUTE EVENTS DURING THIS SHIFT. HS B. RA SAT'S 100%. SEE PREVIOUS NOTE REGARDING UNABLE TO DRAW LABS DURING PREVIOUS SHIFT. LAB WILL ATTEMPT TO DRAW REMAINING LAB ORDERS THIS MORNING. POTASSIUM LEVEL IS 4.4 AT HS. BED AT THE LOWEST POSITION, CALL LIGHTW/I REACH. PT IS ABLE TO MAKE HER NEEDS KNOWN AND IS COOPERATIVE WITH CARE.
[2024-03-15 03:52] VITALS: BP 107/65
[2024-03-15 06:24] LABS: BASOPHILS ABSOLUTE AUTO 0.04 K/mm3 (0.00-0.23); BASOPHILS PERCENT AUTO 1 % (0-2); EOSINOPHILS ABSOLUTE AUTO 0.02 K/mm3 (0.00-0.68); EOSINOPHILS PERCENT AUTO 0 % (0-6); Hematocrit 36.7 % (33.0-51.0); Hemoglobin 13.2 g/dL (11.5-16.0); IMMATURE GRAN ABSOLUTE AUTO 0.13 K/mm3 (0.00-0.10); IMMATURE GRAN PERCENT AUTO 2 % (0-1); LYMPHOCYTES ABSOLUTE AUTO 0.96 K/mm3 (0.84-5.20); LYMPHOCYTES PERCENT AUTO 15 % (21-46); MONOCYTES ABSOLUTE AUTO 1.07 K/mm3 (0.16-1.47); MONOCYTES PERCENT AUTO 17 % (4-13); Mean Corpuscular HGB 37.3 pg (26.0-34.0); Mean Corpuscular Volume 104 fL (80-100); Mean Platelet Volume 9.5 fL (9.1-12.4); NEUTROPHILS ABSOLUTE AUTO 4.27 K/mm3 (1.96-9.15); NEUTROPHILS PERCENT AUTO 66 % (41-73); Platelet Count 342 K/mm3 (150-400); RDW Coefficient Variation 14.6 % (11.7-14.2); RDW Standard Deviation 55.2 fL (35.1-46.3); Red Blood Cell Count 3.54 M/mm3 (3.80-5.20); White Blood Cell Count 6.49 K/mm3 (4.00-11.30)
[2024-03-15 06:42] LABS: Bun/Creatinine Ratio 7.4 (12.0-20.0); Calcium, Blood 8.7 mg/dL (8.5-10.1); Creatinine, Blood 0.4 mg/dL (0.40-1.00); Potassium, Blood 3.7 mmol/L (3.5-5.5)
[2024-03-15 07:30] VITALS: BP 106/70
[2024-03-15] MEDS ORDERED: OxyCODONE 7.5 mg/Acetam 325 mg TABLET PO PRN (11:55)
--- NOTE | 2024-03-15 15:14 | NUR ---
SHIFT SUMMARY MS FRIEND IS ORIENTATED TO SELF, PLACE, NOT DATE OR SITUATION. SHE IS FORGETFUL, HER SISTER WHO HAS BEEN AT HER BEDSIDE SAID THAT SHE IS LESS FORGETFUL TODAY THAN THE LAST FEW DAYS. PT C/O HEADACHE/ ABDOMINAL PAIN AND COCCYX PAIN. HER PAIN IS CURRENTLY CONTROLLED AFTER TAKING ANALGESIA. HER COCCYX IS RED, NEW MEPILEX APPLIED, EGGCRATE MATTRESS PUT ON BED AND PT REMINDED AND ASSISTED TO DO PRESSURE RELIEF. UP TO CHAIR FOR MEALS WITH 1 PERSON ASSISTANCE. PHOTO TAKEN AND IN THE CHART OF SCAB ON LEFT 4TH DIGIT ? OLD BURN SCAB. SHE HAS A POOR APPETITE AND TAKES SMALL AMOUNTS OF HER MEALS AND SIPS OF FLUID. SHE SPOKE WITH SECURITY DIRECTOR TODAY. IVF DISCONTINUED. BED LOW, CALL LIGHT IN REACH, BED ALARM ON.
[2024-03-15 15:16] VITALS: BP 114/65
[2024-03-15 19:45] VITALS: BP 96/70
[2024-03-15] MEDS ORDERED: Metoclopramide HCl 10 MG Tab PO SCH (21:00)
[2024-03-15] MEDS ORDERED: Mirtazapine 30 MG SoluTab PO SCH (21:00)
[2024-03-15] MEDS ORDERED: TraZODone HCl 50 MG Tab PO SCH (21:00)
[2024-03-16 02:32] VITALS: BP 118/73
--- NOTE | 2024-03-16 05:14 | NUR ---
SHIFT SUMMARY NOC PT A/O TO SELF, FAMILY, PLACE. PLEASANT AND COOPERATIVE WITH CARE. BP SOFT, BUT MAP (78). HS CBG 136. PT PAIN BEING MANAGED PER EMAR. PT HAD C/O OF NAUSEA AT SHIFT CHANGE AND GIVEN ZOFRAN. PT TRAZADONE AND REGLAN RESTARTED. PT POSSIBLE DISCHARGE TODAY TO GO LIVE WITH THEIR SISTER GWEN WHO STAYED NIGHT IN ROOM WITH PT. PT CURRENTLY RESTING WITH BED IN LOWEST POSITION, AND CALL LIGHT WITHIN REACH.
[2024-03-16 07:31] VITALS: BP 104/57
[2024-03-16] MEDS ORDERED: Multivitamins 1 Tab PO SCH (09:00)
[2024-03-16] MEDS ORDERED: Acetaminophen325 M1 PO (11:54)
[2024-03-16] MEDS ORDERED: MULVITA PO (11:55)
[2024-03-16] MEDS ORDERED: MIRALAX17 GM PO (11:55)
[2024-03-16 15:10] VITALS: BP 110/68
[2024-03-19 08:40] LABS: ALBUMIN 2.51 g/dL (3.75-5.01); ALPHA 1 GLOBULIN 0.33 g/dL (0.19-0.46); ALPHA 2 GLOBULIN 0.72 g/dL (0.48-1.05); GAMMA 1.03 g/dL (0.62-1.51); IMMUNOFIXATION REFLEX IFE Done; TOTAL PROTEIN,SERUM 5.4 g/dL (6.3-8.2)
[2024-03-19 08:43] LABS: IMMUNOGLOBULIN A 266 mg/dL (68-408); IMMUNOGLOBULIN G 1045 mg/dL (768-1632); IMMUNOGLOBULIN M 69 mg/dL (35-263)
== END 2024-03-16 16:38 | disposition home health service (06) | DRG 689 ==
LOC: ER 16:40 → MEDS 16:41 → ERHOLD 16:41 → MEDS 03-13 10:57
PROVIDERS: Internal Medicine; Student in an Organized Health Care Education/Training Program; ADMIT Student in an Organized Health Care Education/Training Program
DX: N39.0 Urinary tract infection, site not specified (principal); G92.8 Other toxic encephalopathy; E46 Unspecified protein-calorie malnutrition; R64 Cachexia; Z68.1 Body mass index [BMI] 19.9 or less, adult; Z66 Do not resuscitate; E87.6 Hypokalemia; D18.03 Hemangioma of intra-abdominal structures; R13.10 Dysphagia, unspecified; K21.9 Gastro-esophageal reflux disease without esophagitis; I10 Essential (primary) hypertension; G43.909 Migraine, unspecified, not intractable, without status migrainosus; F32.A Depression, unspecified; E03.9 Hypothyroidism, unspecified; E86.0 Dehydration; Z85.3 Personal history of malignant neoplasm of breast; Z92.21 Personal history of antineoplastic chemotherapy; Z92.3 Personal history of irradiation; Z88.5 Allergy status to narcotic agent; Z88.8 Allergy status to other drugs, medicaments and biological substances; Z79.891 Long term (current) use of opiate analgesic; Z79.890 Hormone replacement therapy; Z90.12 Acquired absence of left breast and nipple
CPT/HCPCS: 36415; 70470; 80048; 80053; 81001; 82105; 82140; 82378; 82784; 82947; 83521; 83735; 83880; 84132; 84155; 84165; 84443; 85025; 86334; 86592; 92526; 92610; 94762; 96361; 96365; 96367; 96375; 96376; 97116; 97162; 97165; 97530; 97535; 99285-25; A9270; A9581; G0378; J0696; J1650; J2405; J7030; J7042; J7050; Q9967

== ENCOUNTER → 2024-07-20 | Outpatient (CLI) | payer MEDICARE, OTHER ==
[~2024-07-20] MED LIST changes: +Acetaminophen325 M1 PO; +MULVITA PO; +OXYCODONE-ACET1 EA13 PO; +TOPI25 PO
[2024-07-20 21:07] LABS: Alanine Aminotransfer (ALT/SGP 68 U/L (12-78); Albumin, Blood 4.8 g/dL (3.4-5.0); Albumin/Globulin Ratio 1.4 (0.8-1.8); Alk Phos 147 U/L (50-136); Anion Gap 10 mmol/L (3-11); Aspartate Aminotrans (AST/SGOT 68 U/L (12-37); Bilirubin, Total 0.4 mg/dL (0.1-1.0); Blood Urea Nitrogen 12 mg/dL (8-24); Bun/Creatinine Ratio 18.8 (12.0-20.0); CO2, Blood 23 mmol/L (21-32); Calcium, Blood 9.9 mg/dL (8.5-10.1); Chloride, Blood 109 mmol/L (98-108); Cholesterol 160 mg/dL (50-200); Creatinine, Blood 0.64 mg/dL (0.40-1.00); Free Thyroxine 0.64 ng/dL (0.70-1.60); Globulin, Blood 3.4 g/dL (2.2-4.0); Glomerular Filtration Rate 101 (60-); Glucose, Blood 82 mg/dL (70-99); HDL Cholesterol 81 mg/dL (>39); LDL/HDL RATIO 0.7; Low Density Lipoprotein Chol 60 mg/dL (0-110); Potassium, Blood 3.9 mmol/L (3.5-5.5); Sodium, Blood 138 mmol/L (136-145); Total Protein, Blood 8.2 g/dL (6.4-8.2); Triglycerides 95 mg/dL (30-160); Very Low Density Lipoprot Chol 19 mg/dL (6-32)
== END | disposition home or self-care (01) ==
LOC: LAB 17:47 → LAB SHORT 17:47
PROVIDERS: Internal Medicine
DX: E03.9 Hypothyroidism, unspecified (principal); E78.2 Mixed hyperlipidemia
CPT/HCPCS: 80053; 80061; 84439; 84443

== ENCOUNTER 2024-12-25 12:31 | Day surgery (SDC) | payer MEDICARE, OTHER ==
[~2024-12-25] VITALS: Ht 149.9 cm; Wt 45.0 kg
[2024-12-25] VITALS (26 sets, daily range): BP systolic 103–133; BP diastolic 60–84
[2024-12-25] MEDS ORDERED: Benzocaine Oral Spray 0.5ML UD ONE (13:01)
--- NOTE | 2024-12-25 13:45 | NUR ---
12/25/24 3529 Abeba Mcdowell CONFIRMED AND REVIEWED H&P, MEDCICATIONS, ALLERGIES, MEDICAL HISTORY, RESPIRATORY HISTORY, VITAL SIGNS, 3-LEAD EKG, CONSENTS, AND PHYSICIAN ORDERS. PATIENT CONFIRMS NPO STATUS AND AGREES WITH SCHEDULED PROCEDURE. MONITOR INTACT WITH CONTINUOUS PULSE OXIMETRY, CAPNOGRAPHY, 3-LEAD EKG, INTERMITTENT BP. SUPPLEMENTAL O2 TO BE TITRATED THROUGHOUT PROCEDURE TO MAINTAIN O2 SATURATION ABOVE 90%. PATIENT DETERMINED TO BE ASA APPROPRIATE FOR PROPOFOL SEDATION PRIOR TO START OF PROCEDURE BY .MALLAMPATI CLASS 1 AIRWAY: COMPLETE VISULATIZATION OF THE SOFT PALATE.
--- NOTE | 2024-12-25 13:48 | NUR ---
PATIENT REMOVED BRACELET AND WATCH AND GAVE TO SISTER, GWEN,WHO IS AT BEDSIDE. GLASSES LEFT ON BEDSIDE.
--- NOTE | 2024-12-25 15:04 | NUR ---
Discharge instructions reviewed with patient. Patient verbalizes understanding. Copy given to patient to take home. Patient States Post-Procedure ride home has been arranged. Discharged via wheelchair to private car for ride home.
== END 2024-12-25 22:42 | disposition home or self-care (01) ==
LOC: ORSCMMR 12:31 → ORD 13:00 → ORSCMMR 13:00
PROVIDERS: Surgery
PROC: 0DBN8ZX Excision of Sigmoid Colon, Via Natural or Artificial Opening Endoscopic, Diagnostic (ICD-10-PCS; principal; 2024-12-25 14:00)
PROC: 0DB68ZX Excision of Stomach, Via Natural or Artificial Opening Endoscopic, Diagnostic (ICD-10-PCS; principal; 2024-12-25 14:00)
DX: E61.1 Iron deficiency (principal); R93.3 Abnormal findings on diagnostic imaging of other parts of digestive tract; K29.70 Gastritis, unspecified, without bleeding; K31.84 Gastroparesis; F41.9 Anxiety disorder, unspecified; I10 Essential (primary) hypertension; E03.9 Hypothyroidism, unspecified; E78.2 Mixed hyperlipidemia; Z86.718 Personal history of other venous thrombosis and embolism; Z79.899 Other long term (current) drug therapy
CPT/HCPCS: 88305; 88341; 88342; A9270; J2704; J7120